=== PATIENT | male | born 1970 | race Caucasian/White ===

== ENCOUNTER 2017-10-10 22:48 | Inpatient (IN) | payer OTHER ==
[~2017-10-10] VITALS: Ht 177.8 cm; Wt 85.5 kg
[2017-10-10 23:07] VITALS: BP 139/97; PULSE 87; RESP 18; O2SAT 96
[2017-10-10] MEDS ORDERED: TETANUS/DIPHTHERIA TOXOID ADULT 0.5 ML VIAL IM ONE (23:30)
[2017-10-10] MEDS ORDERED: MORPHINE SULFATE 4 MG/ML INJ IV PUSH ONE (23:30)
[2017-10-10] MEDS ORDERED: SODIUM CHLOR 0.9% 1000 ML INJ 1,000 ML IV SCH (23:30)
[2017-10-10] MEDS ORDERED: ceFAZolin 2 GM PREMIX 100 ML IV ONE (23:30)
[2017-10-10] MEDS ORDERED: SODIUM CHLORIDE 0.9% FLUSH 10 ML FLUSH IVF PRN (23:30)
[2017-10-10] MEDS ORDERED: ONDANSETRON HCL 4 MG/2 ML VIAL IV PUSH ONE ×2 (23:30)
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
[2017-10-10 23:41] VITALS: RESP 20; O2SAT 98
[2017-10-11] VITALS (15 sets, daily range): BP systolic 131–160; BP diastolic 87–101; PULSE 82–109; RESP 12–20; TEMP 97.9–99.6; O2SAT 94–100
[2017-10-11] MEDS ORDERED: METOCLOPRAMIDE HCL 10 MG/2 ML VIAL IV PUSH ONE
[2017-10-11 00:23] LABS: BILIRUBIN, URINE NEG (NEG); BLOOD, URINE NEG (NEG); GLUCOSE,URINE NEG (NEG); KETONE, URINE NEG (NEG); NITRITE,URINE NEG (NEG); PH, URINE 6.5 (5.0-8.5); URINE COLOR LIGHT-YELLOW (YELLW/STRAW); URINE LEUKOCYTE ESTERASE NEG (NEG)
[2017-10-11 00:26] LABS: BASOPHIL % 0.2 % (0.0-2.0); EOSINOPHIL % 0.5 % (0.0-4.0); HEMATOCRIT 46.2 % (39.0-51.0); HEMOGLOBIN 15.8 GM/DL (13.0-17.0); LYMPH % 25.9 % (9.0-44.0); MEAN CELL VOLUME 95.7 FL (80.0-100.0); MEAN CORPUSCULAR HEMOGLOBIN 32.6 PG (27.0-34.0); MEAN CORPUSCULAR HGB CONC 34.1 % (32.0-36.0); MEAN PLATELET VOLUME 10.8 FL (7.0-11.0); MONO % 7.7 % (0.0-8.0); MONOCYTE # 0.6 TH/MM3 (0-0.9); NEUT % 65.7 % (16.0-70.0); PLATELET COUNT 217 TH/MM3 (150-450); RED BLOOD COUNT 4.83 MIL/MM3 (4.50-5.90); RED CELL DISTRIBUTION WIDTH 12.7 % (11.6-17.2); WHITE BLOOD COUNT 7.5 TH/MM3 (4.0-11.0)
[2017-10-11] MEDS ORDERED: LIDOCAINE HCL 1% PF 30 ML VIAL INFIL ONE (00:30)
[2017-10-11 00:31] LABS: PROTHROMBIN TIME - PATIENT 10.3 SEC (9.8-11.6)
[2017-10-11 00:36] LABS: BICARBONATE 29.2 MEQ/L (21.0-32.0); CALCIUM 9.1 MG/DL (8.5-10.1); CREATININE 1.13 MG/DL (0.60-1.30)
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
[2017-10-11] MEDS ORDERED: MAGNESIUM HYDROXIDE SUSP 30 ML CUP PO PRN (01:15)
[2017-10-11] MEDS ORDERED: BISACODYL 10 MG SUPP RECTAL PRN (01:15)
[2017-10-11] MEDS: SODIUM CHLOR 0.9% 1000 ML INJ 1,000 ML IV SCH ×2 (01:15→13:10)
[2017-10-11] MEDS ORDERED: NURSING INFORMATION XX SCH (01:15)
[2017-10-11] MEDS ORDERED: SENNOSIDES 8.6 MG TAB PO PRN (01:15)
[2017-10-11] MEDS ORDERED: LACTULOSE SYRUP 20 GM/30 ML CUP PO PRN (01:15)
[2017-10-11] MEDS ORDERED: MORPHINE SULFATE 4 MG/ML INJ IV PUSH ONE (01:15)
[2017-10-11] MEDS ORDERED: CHLORHEXIDINE GLUCONATE 2 % 1 PACK (2 CLOTHS) TOP PRN (01:15)
[2017-10-11] MEDS ORDERED: HYDROmorphone HCL PF 2 MG/ML VIAL IV PUSH PRN (01:30)
[2017-10-11] MEDS ORDERED: IOHEXOL 350 MG/ML 10 ML VIAL (for RAD DIAG) IVCONTRAST ONE (02:01)
[2017-10-11] MEDS: ACETAMINOPHEN 1000 MG/100 ML 100 ML IV SCH ×4 (02:17→20:00)
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
[2017-10-11] MEDS ORDERED: SODIUM CHLOR 0.9% 1000 ML INJ 1,000 ML IV ONE (02:45)
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
[2017-10-11] MEDS: CHLORHEXIDINE GLUCONATE 2 % 1 PACK (2 CLOTHS) TOP SCH (04:00)
[2017-10-11] MEDS: FAMOTIDINE 20 MG/2 ML VIAL IV PUSH SCH ×2 (06:00→18:44)
[2017-10-11] MEDS ORDERED: MIDAZOLAM HCL 5 MG/ML VIAL (1 ML) ONE (07:52)
[2017-10-11] MEDS ORDERED: MORPHINE SULFATE 4 MG/ML INJ IV ONE (08:00)
[2017-10-11] MEDS ORDERED: MIDAZOLAM HCL 5 MG/ML VIAL (1 ML) IV ONE (08:00)
[2017-10-11] MEDS ORDERED: LIDOCAINE 1%/EPINEPHrine 1:100,000 SOLN 20 ML VIAL OTHER ONE (08:15)
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
--- NOTE | 2017-10-11 08:58 | PD.OP ---
Operative Report Date of Surgery: October 11, 2017 Preoperative Diagnosis: Cervical C4-5 fracture subluxation with jumped facet on the right side and perched facet on left side Postoperative Diagnosis: Same Procedure: Closed reduction with manipulation of C4-5 cervical fracture; HALO placement Anesthesia: Local with conscious sedation Surgeon: Shimon Ferreira MD Field Supervisor [employer](s): [employer]idence Operation and Findings: Informed consent was obtained from the patient. Procedure undertaken at the bedside in the surgical intensive care unit with oxygen saturation and hemodynamic monitoring. Versed 2 mg and morphine 8 mg IV was administered and neck was maintained in a Jackson J collar during the placement of the halo. A bifrontal and occipital regions were then shaved and prepped with Betadine solution and infiltrated with 1% lidocaine with epinephrine solution avoiding the laceration sites. The halo ring was in place with 2 frontal and occipital pins tightened to 8 pounds of torque pressure. The ring was then placed under cervical traction initially 10 pounds and subsequently increased to 15 pounds with slight extension of the neck. Cervical spine x-rays will be obtained in a few hours to assess whether reduction C4-5 fracture subluxation is achieved with traction. Patient tolerated the procedure well without any complications or blood loss. Shimon Ferreira MD October 11, 2017 08:58
[2017-10-11] MEDS: DOCUSATE SODIUM 50 MG/SENNA 8.6 MG TAB PO SCH ×2 (09:00→21:00)
[2017-10-11] MEDS: METHOCARBAMOL 500 MG TAB PO SCH ×3 (11:04→21:27)
--- NOTE | 2017-10-11 12:53 | RADRPT ---
EXAM DATE: 10/11/2017 12:48 PM EDT AGE/SEX: 47 years / Male INDICATIONS: Follow up cervical spine subluxation CLINICAL DATA: This is the patient's subsequent encounter. Patient reports that signs and symptoms h ave been present for 1 day and indicates a pain score of Nonresponsive. MEDICAL/SURGICAL HISTORY: . C4-5 subluxation and fracture cervical traction Non-responsive. COMPAR[place]: [facility] [place]/O CONTRAST, 10/11/2017. . FINDINGS: A grade 1/2 anterolisthesis of C4 on C5 with perched facets persisting as on recent CT. CONCLUSION: Anterior subluxation of C4 on C5 with perched facets remain similar in appearance to recent CT examin ation. Electronically signed by: Mich Garcia MD 10/11/2017 12:51 PM EDT
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
[2017-10-11] MEDS: ENOXAPARIN SODIUM 30 MG/0.3 ML SYRINGE SQ SCH (18:44)
[2017-10-11] MEDS: HYDROmorphone HCL PF 2 MG/ML VIAL IV PUSH PRN (20:00)
[2017-10-11] MEDS: oxyCODONE/ACETAMINOPHEN 10 MG/325 MG TAB PO PRN (22:00)
[2017-10-12] VITALS (12 sets, daily range): BP systolic 149–156; BP diastolic 92–104; PULSE 83–110; RESP 14–16; TEMP 98.1–99.9; O2SAT 94–99
[2017-10-12] MEDS ORDERED: MAGNESIUM HYDROXIDE SUSP 30 ML CUP PO SCH (02:00)
[2017-10-12] MEDS: HYDROmorphone HCL PF 2 MG/ML VIAL IV PUSH PRN ×4 (02:57→17:29)
[2017-10-12] MEDS: oxyCODONE/ACETAMINOPHEN 10 MG/325 MG TAB PO PRN ×4 (02:57→20:44)
[2017-10-12] MEDS: ONDANSETRON ODT 4 MG TAB PO PRN ×2 (02:57→13:21)
[2017-10-12] MEDS: CHLORHEXIDINE GLUCONATE 2 % 1 PACK (2 CLOTHS) TOP SCH (04:00)
[2017-10-12 04:46] LABS: AUTOMATED NEUTROPHIL # 6.8 TH/MM3 (1.8-7.7); BASOPHIL % 0.2 % (0.0-2.0); EOSINOPHIL % 0.4 % (0.0-4.0); HEMATOCRIT 41.5 % (39.0-51.0); HEMOGLOBIN 14.7 GM/DL (13.0-17.0); LYMPH % 13.3 % (9.0-44.0); LYMPHOCYTE # 1.2 TH/MM3 (1.0-4.8); MEAN CELL VOLUME 94.7 FL (80.0-100.0); MEAN CORPUSCULAR HEMOGLOBIN 33.5 PG (27.0-34.0); MEAN CORPUSCULAR HGB CONC 35.4 % (32.0-36.0); MEAN PLATELET VOLUME 10.8 FL (7.0-11.0); MONO % 12.6 % (0.0-8.0); MONOCYTE # 1.2 TH/MM3 (0-0.9); NEUT % 73.5 % (16.0-70.0); PLATELET COUNT 188 TH/MM3 (150-450); RED BLOOD COUNT 4.38 MIL/MM3 (4.50-5.90); RED CELL DISTRIBUTION WIDTH 12.7 % (11.6-17.2); WHITE BLOOD COUNT 9.2 TH/MM3 (4.0-11.0)
[2017-10-12 05:07] LABS: BICARBONATE 29.2 MEQ/L (21.0-32.0); CALCIUM 8.5 MG/DL (8.5-10.1); CREATININE 0.73 MG/DL (0.60-1.30)
[2017-10-12] MEDS: ENOXAPARIN SODIUM 30 MG/0.3 ML SYRINGE SQ SCH (05:43)
[2017-10-12] MEDS: FAMOTIDINE 20 MG/2 ML VIAL IV PUSH SCH (05:43)
[2017-10-12] MEDS: METHOCARBAMOL 500 MG TAB PO SCH (05:43)
[2017-10-12] MEDS: SODIUM CHLOR 0.9% 1000 ML INJ 1,000 ML IV SCH (05:44)
--- NOTE | 2017-10-12 08:31 | RADRPT ---
EXAM DATE: 10/12/2017 8:21 AM EDT AGE/SEX: 47 years / Male INDICATIONS: Follow-up C4-C5 subluxation. CLINICAL DATA: This is the patient's subsequent encounter. Patient reports that signs and symptoms h ave been present for 3 days and indicates a pain score of 0/10. MEDICAL/SURGICAL HISTORY: . C4-5 subluxation and fracture cervical traction. None. COMPARISON: [facility] [place] CERVICAL LATERAL ONLY, 10/11/2017. . FINDINGS: Today's exam is compared to the prior study. There continues to be anterior subluxation of C4 over C5 by approximately 1 cm. This appears to be unchanged compared to the prior exam. This appears to be s econdary to perched facets. CONCLUSION: No significant change compared to the prior exam. There continues to be approximately 1 cm of anterio r subluxation of C4 over C5. Electronically signed by: Brian Martinez MD 10/12/2017 8:29 AM EDT
[2017-10-12] MEDS: FAMOTIDINE 20 MG TAB PO SCH ×2 (08:55→20:44)
[2017-10-12] MEDS: LACTULOSE SYRUP 20 GM/30 ML CUP PO SCH (08:55)
[2017-10-12] MEDS: MAGNESIUM HYDROXIDE SUSP 30 ML CUP PO SCH ×2 (08:56→21:00)
[2017-10-12] MEDS: DOCUSATE SODIUM 50 MG/SENNA 8.6 MG TAB PO SCH ×2 (08:56→21:00)
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
[2017-10-12] MEDS: DIAZEPAM 2 MG TAB PO SCH ×2 (13:12→20:44)
[2017-10-13] VITALS (12 sets, daily range): BP systolic 127–149; BP diastolic 81–102; PULSE 91–113; RESP 15–22; TEMP 98.4–99.1; O2SAT 19–98
[2017-10-13] MEDS: HYDROmorphone HCL PF 2 MG/ML VIAL IV PUSH PRN ×6 (00:09→23:16)
[2017-10-13] MEDS: CHLORHEXIDINE GLUCONATE 2 % 1 PACK (2 CLOTHS) TOP SCH ×2 (04:00→22:09)
[2017-10-13] MEDS: ENOXAPARIN SODIUM 30 MG/0.3 ML SYRINGE SQ SCH ×2 (05:05→17:09)
[2017-10-13] MEDS: DIAZEPAM 2 MG TAB PO SCH ×3 (05:05→22:09)
[2017-10-13] MEDS: oxyCODONE/ACETAMINOPHEN 10 MG/325 MG TAB PO PRN ×3 (07:53→22:11)
[2017-10-13] MEDS: FAMOTIDINE 20 MG TAB PO SCH ×2 (07:54→22:09)
[2017-10-13] MEDS: DOCUSATE SODIUM 50 MG/SENNA 8.6 MG TAB PO SCH ×2 (09:00→21:00)
[2017-10-13] MEDS: MAGNESIUM HYDROXIDE SUSP 30 ML CUP PO SCH ×2 (09:00→21:00)
[2017-10-13] MEDS: LACTULOSE SYRUP 20 GM/30 ML CUP PO SCH (09:00)
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
[2017-10-14] VITALS (15 sets, daily range): BP systolic 121–141; BP diastolic 77–98; PULSE 92–117; RESP 13–27; TEMP 98.4–100.6; O2SAT 92–100
[2017-10-14] MEDS: oxyCODONE/ACETAMINOPHEN 10 MG/325 MG TAB PO PRN ×2 (01:47→21:53)
[2017-10-14 03:32] LABS: AUTOMATED NEUTROPHIL # 5.8 TH/MM3 (1.8-7.7); BASOPHIL % 0.2 % (0.0-2.0); EOSINOPHIL # 0.1 TH/MM3 (0-0.4); EOSINOPHIL % 1.5 % (0.0-4.0); HEMATOCRIT 42.3 % (39.0-51.0); HEMOGLOBIN 14.9 GM/DL (13.0-17.0); LYMPH % 15.7 % (9.0-44.0); LYMPHOCYTE # 1.4 TH/MM3 (1.0-4.8); MEAN CELL VOLUME 93.5 FL (80.0-100.0); MEAN CORPUSCULAR HEMOGLOBIN 33.1 PG (27.0-34.0); MEAN CORPUSCULAR HGB CONC 35.4 % (32.0-36.0); MONO % 16.2 % (0.0-8.0); MONOCYTE # 1.4 TH/MM3 (0-0.9); NEUT % 66.4 % (16.0-70.0); PLATELET COUNT 206 TH/MM3 (150-450); RED BLOOD COUNT 4.52 MIL/MM3 (4.50-5.90); RED CELL DISTRIBUTION WIDTH 12.5 % (11.6-17.2); WHITE BLOOD COUNT 8.8 TH/MM3 (4.0-11.0)
[2017-10-14 03:58] LABS: ALBUMIN 3.5 GM/DL (3.4-5.0); ALT (GPT) 33 U/L (12-78); AST (GOT) 20 U/L (15-37); BICARBONATE 32.4 MEQ/L (21.0-32.0); BLOOD UREA NITROGEN 11 MG/DL (7-18); CHLORIDE 97 MEQ/L (98-107); CREATININE 0.75 MG/DL (0.60-1.30); GLOMERULAR FILTRATION RATE 113 ML/MIN (>89); GLUCOSE,RANDOM 103 MG/DL (74-106); SODIUM (NA) 137 MEQ/L (136-145)
[2017-10-14 04:00] LABS: ALKALINE PHOSPHATASE 66 U/L (45-117); TOTAL BILIRUBIN ADULT 0.6 MG/DL (0.2-1.0); TOTAL PROTEIN 7.6 GM/DL (6.4-8.2)
[2017-10-14] MEDS: DIAZEPAM 2 MG TAB PO SCH ×3 (06:38→21:53)
[2017-10-14] MEDS: ENOXAPARIN SODIUM 30 MG/0.3 ML SYRINGE SQ SCH (06:38)
[2017-10-14] MEDS: HYDROmorphone HCL PF 2 MG/ML VIAL IV PUSH PRN ×3 (06:39→19:49)
[2017-10-14] MEDS: FAMOTIDINE 20 MG TAB PO SCH ×2 (08:39→19:49)
[2017-10-14] MEDS: DOCUSATE SODIUM 50 MG/SENNA 8.6 MG TAB PO SCH ×2 (08:39→19:49)
[2017-10-14] MEDS: LACTULOSE SYRUP 20 GM/30 ML CUP PO SCH (08:39)
[2017-10-14] MEDS: MAGNESIUM HYDROXIDE SUSP 30 ML CUP PO SCH ×2 (08:39→19:49)
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
--- NOTE | 2017-10-14 11:39 | RADRPT ---
EXAM DATE: 10/14/2017 11:30 AM EDT AGE/SEX: 47 years / Male INDICATIONS: Evaluate fracture. CLINICAL DATA: This is the patient's subsequent encounter. Patient reports that signs and symptoms h ave been present for 3 days and indicates a pain score of 6/10. MEDICAL/SURGICAL HISTORY: . C4-5 subluxation and fracture cervical traction None. COMPARISON: [facility] [place], SPINE CERVICAL LATERAL ONLY, 10/12/2017. . FINDINGS: A single view of the spine was performed. There is anterolisthesis C4 on 5 of 5 mm. This spaces are maintained. Patient within a halo. Vertebral body height and disc space height is maintained. CONCLUSION: Anterolisthesis measures 5 mm at C4-5. Electronically signed by: Jeffry Randolph MD 10/14/2017 11:37 AM EDT
[2017-10-14] MEDS: NS + KCL 20 MEQ INJ 1,000 ML IV SCH ×2 (12:45→21:31)
[2017-10-14] MEDS: ONDANSETRON ODT 4 MG TAB PO PRN (21:53)
[2017-10-15] VITALS (14 sets, daily range): BP systolic 100–124; BP diastolic 60–93; PULSE 86–108; RESP 12–17; TEMP 97.8–99.3; O2SAT 93–100
[2017-10-15] MEDS: HYDROmorphone HCL PF 2 MG/ML VIAL IV PUSH PRN ×2 (01:47→07:51)
[2017-10-15] MEDS: CHLORHEXIDINE GLUCONATE 2 % 1 PACK (2 CLOTHS) TOP SCH (04:00)
[2017-10-15] MEDS: DIAZEPAM 2 MG TAB PO SCH (06:05)
--- NOTE | 2017-10-15 06:44 | RADRPT ---
EXAM DATE: 10/15/2017 6:41 AM EDT AGE/SEX: 47 years / Male INDICATIONS: Short of breath. CLINICAL DATA: This is the patient's initial encounter. Patient reports that signs and symptoms have been present for 1 day and indicates a pain score of Nonresponsive. MEDICAL/SURGICAL HISTORY: . C4-5 subluxation and fracture cervical traction. None. COMPARISON: No prior exams available for comparison. FINDINGS: Slight bibasilar atelectasis is seen. Focal consolidation is not seen. Heart and mediastinum are unre markable for technique. CONCLUSION: Slight bibasilar atelectasis. Electronically signed by: Jacky Post MD 10/15/2017 6:42 AM EDT
[2017-10-15] MEDS ORDERED: GELFOAM SIZE 100 ONE ×2 (06:58→13:11)
[2017-10-15] MEDS ORDERED: BUPIVACAINE/EPINEPHRINE 0.5% PF 10 ML VIAL ONE (06:58)
[2017-10-15] MEDS ORDERED: THROMBIN (TOPICAL) 5,000 UNIT VIAL ONE ×2 (06:58→13:11)
[2017-10-15] MEDS ORDERED: VANCOMYCIN HCL 1000 MG VIAL ONE ×3 (06:58→13:16)
[2017-10-15] MEDS: MAGNESIUM HYDROXIDE SUSP 30 ML CUP PO SCH ×2 (09:00→19:40)
[2017-10-15] MEDS: FAMOTIDINE 20 MG TAB PO SCH (09:00)
[2017-10-15] MEDS: DOCUSATE SODIUM 50 MG/SENNA 8.6 MG TAB PO SCH ×2 (09:00→19:40)
[2017-10-15] MEDS: LACTULOSE SYRUP 20 GM/30 ML CUP PO SCH (09:00)
[2017-10-15] MEDS ORDERED: PROPOFOL 500 MG/50 ML INJ 50 ML ONE ×2 (11:54→14:22)
[2017-10-15] MEDS ORDERED: KETAMINE HCL 50 MG/5 ML SYRINGE ONE (11:55)
[2017-10-15] MEDS ORDERED: PHENYLEPHRINE HCL 10 MG/ML VIAL IV ONE (12:00)
[2017-10-15] MEDS ORDERED: LACTATED RINGER'S 1000 ML INJ 1,000 ML IV ONE (12:00)
[2017-10-15] MEDS ORDERED: PROPOFOL 200 MG/20 ML AMP IV ONE (12:00)
[2017-10-15] MEDS ORDERED: DEXAMETHASONE SOD PHOS 4 MG/ML VIAL IV ONE (12:00)
[2017-10-15] MEDS ORDERED: PHENYLEPH/NS 1000 MCG/10 ML SYR IV ONE (12:00)
[2017-10-15] MEDS ORDERED: ROCURONIUM INJ 50 MG/5 ML SYRINGE IV PUSH ONE (12:00)
[2017-10-15] MEDS ORDERED: LIDOCAINE HCL 1% PF 5 ML SYRINGE OTHER ONE (12:00)
[2017-10-15] MEDS ORDERED: DEXAMETHASONE SOD PHOS 4 MG/ML VIAL ONE (13:16)
--- NOTE | 2017-10-15 13:34 | EKG ---
Date Performed: 10/15/2017 Time Performed: 05:41:54 PTAGE: 47 years EKG: Sinus rhythm . Leftward axis Borderline ECG NO PREVIOUS TRACING Nonspecific ST-T changes. DOCTOR: Benedict Bowling Interpretating Date/Time 10/18/2017 08:13:47
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
[2017-10-15] MEDS ORDERED: CYCLOBENZAPRINE HCL 10 MG TAB PO PRN (15:45)
[2017-10-15] MEDS ORDERED: MAGNESIUM HYDROXIDE SUSP 30 ML CUP PO PRN (15:45)
[2017-10-15] MEDS ORDERED: ACETAMINOPHEN 325 MG TAB PO PRN (15:45)
[2017-10-15] MEDS ORDERED: ALUMINUM/MAGNESIUM/SIMETH 30 ML CUP PO PRN (15:45)
[2017-10-15] MEDS ORDERED: LABETALOL HCL 100 MG/20 ML VIAL IV PUSH PRN (15:45)
[2017-10-15] MEDS ORDERED: MAGNESIUM SULFATE INJ 2 GM in SODIUM CHLORIDE 0.9% INJ 100 ML IV PRN (15:45)
[2017-10-15] MEDS ORDERED: CALCIUM GLUCONATE INJ 1 GM in SODIUM CHLORIDE 0.9% INJ 100 ML IV PRN (15:45)
[2017-10-15] MEDS ORDERED: ZOLPIDEM TARTRATE 5 MG TAB PO PRN (15:45)
[2017-10-15] MEDS ORDERED: PROMETHAZINE INJ 25 MG/ML VIAL IM PRN (15:45)
[2017-10-15] MEDS ORDERED: ACETAMINOPHEN/HYDROcodone 325 MG/10 MG TAB PO PRN ×2 (15:45)
[2017-10-15] MEDS ORDERED: RESP: ALBUTEROL 2.5 MG/3 ML NEB (PRN) NEB (15:45)
[2017-10-15] MEDS ORDERED: cloNIDine HCL 0.1 MG TAB PO PRN (15:45)
--- NOTE | 2017-10-15 15:59 | PD.OP ---
Operative Report Date of Surgery: October 15, 2017 Preoperative Diagnosis: Cervical C4-5 fracture subluxation and gross instability with right jumped facet and left perched facet with right C4-5 facet fracture Postoperative Diagnosis: Same Procedure: Stage 1 of 2 planned cervical spine stabilization surgery: Posterior cervical C4-5 fusion; C4-5 open reduction and internal fixation of fracture subluxation; C4-5 decompressive laminectomy; C4-5 lateral mass fixation ; microsurgical technique Anesthesia: General endotracheal by Gabby chowdhury Surgeon: Shimon Ferreira MD [employer]iance [employer] Director(s): Brisa Durán Operation and Findings: Patient was placed in halo traction with the attempted closed reduction of the C4-5 fracture subluxation with the some correction but not complete reduction of the jumped facet. Open reduction and internal fixation was indicated and this was discussed at length with the patient along with the risks and benefits and alternative nonsurgical and he requested that we proceed and gave informed consent. Following administration of general endotracheal anesthesia with the neck maintained in neutral position in a Halo, patient had a Wade catheter placed with sequential compression devices. He was a very difficult intubation as per the anesthesiologist. A gram of vancomycin and Decadron 10 mg was administered intravenously. He was then turned on a prone position on a Camron table and the head secured in a halo attached to the [place] headrest and all pressure points adequately padded. The posterior portion of the halo vest was then removed and posterior cervical region was then shaved and prepped with Betadine solution and ChloraPrep. Sterile draping undertaken along with Ioban and a midline incision extending from the C4 to the C5 levels was then made after infiltrating the skin was 0.5% Marcaine with epinephrine solution. Intraoperative fluoroscopy used for level confirmation. Retractors were used for exposure after the fascia incised and the muscular attachments to the spinous process and lamina along with the facets detached from C4-5 levels bilaterally. There was right C4-5 jumped facet with fracture noted but the left C4-5 perched facet had reduced. Further dissection was undertaken using microtechnique with microscope magnification. I drilled out the lamina at the junction of the facets from C4-5 levels bilaterally and an en bloc laminectomy undertaken for decompression the spinal canal. The ligamentum flavum were also resected with Kerrisons. The facets on both sides decorticated with a curette. With the use of a clip the C4-5 right jumped facet was reduced along with drilling of the superior portion of the C5 facet and with the lateral fluoroscopy realignment of the C4-5 subluxation was noted. Subsequently lateral mass fixation undertaken with the [employer] screws with entry point of the midportion of the facets at the C4 and C5 levels bilaterally. The screw trajectory was lateral and superiorly guided with fluoroscopy also. Screws were then connected with a roger and locked in place with caps. The construct appeared to be secure this point in AP and lateral fossae confirmed good placement and alignment. The decorticated facets were then packed from C4-5 levels with the local autograft morselized bone mixed with demineralized bone matrix for posterolateral fusion. The area was then copiously irrigated with vancomycin antibiotic solution and the laminectomy edges and hemostasis achieved with bone wax along with Gelfoam and thrombin. Retractors removed and the muscle and fascia using 2-0 Vicryl interrupted sutures and 3-0 Vicryl subcuticular stitch also placed in an interrupted fashion and final skin closure was with sherron. A sterile dressing was applied and posterior portion of the halo vest was then replaced and connected to the ring and secured in place. The Goodwin headrest attachment of the halo ring was then detached and he was then turned in supine position . There were no intraoperative complications and all sponge and needle count was correct at the end the procedure. Estimated blood loss about 100 cc. Patient was left intubated given the difficult intubation and the likelihood for anterior C4-5 cervical fusion staged approach. He was taken back to the surgical intensive care unit. Patient did undergo intraoperative neurologic monitoring which remained stable throughout surgery. Shimon Ferreira MD October 15, 2017 15:59
[2017-10-15] MEDS: NS + KCL 20 MEQ INJ 1,000 ML IV SCH (16:00)
[2017-10-15] MEDS ORDERED: MIDAZOLAM HCL 2 MG/2 ML VIAL ONE (16:00)
[2017-10-15] MEDS: PROPOFOL 1000 MG/100 ML INJ 100 ML IV PRN (16:26)
[2017-10-15] MEDS: fentaNYL DRIP 250 ML IV PRN (16:26)
--- NOTE | 2017-10-15 16:28 | RADRPT ---
EXAM DATE: 10/15/2017 4:18 PM EDT AGE/SEX: 47 years / Male INDICATIONS: C4-5 Posterior fusion. CLINICAL DATA: This is the patient's initial encounter. Patient reports that signs and symptoms have been present for 1 day and indicates a pain score of Nonresponsive. MEDICAL/SURGICAL HISTORY: Non-responsive. Non-responsive. COMPARISON: No prior [place] exams available for comparison. FINDINGS: 3 spot fluoroscopic images were obtained in the operating room during a cervical spine procedure and demonstrate posterior screws bilaterally at the C4-C5 level with vertical stabilization hardware. Doyle inectomy has also been performed at these levels. No acute finding is identified. CONCLUSION: Images document posterior spinal hardware at C4-C5, as above. Electronically signed by: Gómez Ni MD 10/15/2017 4:26 PM EDT
[2017-10-15 16:29] LABS: HEMATOCRIT 40.1 % (39.0-51.0); HEMOGLOBIN 13.9 GM/DL (13.0-17.0); MEAN CELL VOLUME 94.2 FL (80.0-100.0); MEAN CORPUSCULAR HEMOGLOBIN 32.7 PG (27.0-34.0); MEAN CORPUSCULAR HGB CONC 34.8 % (32.0-36.0); MEAN PLATELET VOLUME 9.9 FL (7.0-11.0); PLATELET COUNT 229 TH/MM3 (150-450); RED BLOOD COUNT 4.26 MIL/MM3 (4.50-5.90); RED CELL DISTRIBUTION WIDTH 12.4 % (11.6-17.2); WHITE BLOOD COUNT 9.6 TH/MM3 (4.0-11.0)
[2017-10-15] MEDS ORDERED: fentaNYL 2,500 MCG/NS 250 ML IV PRN (16:30)
--- NOTE | 2017-10-15 16:47 | RADRPT ---
EXAM DATE: 10/15/2017 4:38 PM EDT AGE/SEX: 47 years / Male INDICATIONS: Post intubation. CLINICAL DATA: This is the patient's subsequent encounter. Patient reports that signs and symptoms h ave been present for 1 week and indicates a pain score of Nonresponsive. MEDICAL/SURGICAL HISTORY: . C4-5 subluxation and fracture cervical traction. . Halo placement. COMPARISON: [facility], CHEST SINGLE AP, 10/15/2017. . FINDINGS: Portable AP view of the chest demonstrates a normal size cardiac silhouette. Endotracheal tube is pre sent with distal tip at the aortic knob level measuring 4.2 cm from the dorene. Lungs are underinflat ed with mild atelectasis at the lung bases. No pleural effusion or pneumothorax is identified. Bones demonstrate no acute finding. Halo device overlies the patient. CONCLUSION: Endotracheal tube is in appropriate location with tip measuring 4.2 cm from the dorene. Lungs are und erinflated. Electronically signed by: Gómez Ni MD 10/15/2017 4:46 PM EDT
[2017-10-15 16:56] LABS: BICARBONATE 27.3 MEQ/L (21.0-32.0); CALCIUM 8.7 MG/DL (8.5-10.1); CREATININE 0.82 MG/DL (0.60-1.30)
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
[2017-10-15] MEDS: FAMOTIDINE 20 MG/2 ML VIAL IV PUSH SCH (17:39)
[2017-10-15] MEDS: SODIUM CHLORIDE 0.9% FLUSH 10 ML FLUSH IV FLUSH SCH (19:41)
[2017-10-15] MEDS: DEXAMETHASONE SOD PHOS 4 MG/ML VIAL IV PUSH SCH (19:44)
[2017-10-16] VITALS (18 sets, daily range): BP systolic 93–122; BP diastolic 57–75; PULSE 80–101; RESP 12; TEMP 97.3–99; O2SAT 94–100
[2017-10-16] MEDS: DEXAMETHASONE SOD PHOS 4 MG/ML VIAL IV PUSH SCH ×2 (01:42→07:56)
[2017-10-16] MEDS: NS + KCL 20 MEQ INJ 1,000 ML IV SCH (01:45)
[2017-10-16] MEDS: PROPOFOL 1000 MG/100 ML INJ 100 ML IV PRN (03:57)
[2017-10-16] MEDS: FAMOTIDINE 20 MG/2 ML VIAL IV PUSH SCH ×2 (03:57→17:00)
[2017-10-16] MEDS: CHLORHEXIDINE GLUCONATE 2 % 1 PACK (2 CLOTHS) TOP SCH (04:00)
[2017-10-16 04:04] LABS: AUTOMATED NEUTROPHIL # 9.5 TH/MM3 (1.8-7.7); BASOPHIL % 0.2 % (0.0-2.0); HEMATOCRIT 36.3 % (39.0-51.0); HEMOGLOBIN 12.9 GM/DL (13.0-17.0); LYMPH % 5.7 % (9.0-44.0); LYMPHOCYTE # 0.6 TH/MM3 (1.0-4.8); MEAN CELL VOLUME 93.2 FL (80.0-100.0); MEAN CORPUSCULAR HEMOGLOBIN 33.2 PG (27.0-34.0); MEAN CORPUSCULAR HGB CONC 35.6 % (32.0-36.0); MEAN PLATELET VOLUME 10.7 FL (7.0-11.0); MONO % 6.9 % (0.0-8.0); MONOCYTE # 0.8 TH/MM3 (0-0.9); NEUT % 87.2 % (16.0-70.0); PLATELET COUNT 200 TH/MM3 (150-450); RED CELL DISTRIBUTION WIDTH 12.4 % (11.6-17.2); WHITE BLOOD COUNT 10.9 TH/MM3 (4.0-11.0)
[2017-10-16 04:15] LABS: BICARBONATE 27.8 MEQ/L (21.0-32.0); CALCIUM 8.2 MG/DL (8.5-10.1); CREATININE 0.68 MG/DL (0.60-1.30)
[2017-10-16] MEDS: fentaNYL DRIP 250 ML IV PRN ×3 (07:15→23:14)
[2017-10-16] MEDS: SODIUM CHLORIDE 0.9% FLUSH 10 ML FLUSH IV FLUSH SCH ×2 (07:56→19:31)
[2017-10-16] MEDS: MAGNESIUM HYDROXIDE SUSP 30 ML CUP PO SCH ×2 (07:57→19:30)
[2017-10-16] MEDS: DOCUSATE SODIUM 50 MG/SENNA 8.6 MG TAB PO SCH ×2 (07:57→19:31)
[2017-10-16] MEDS: LACTULOSE SYRUP 20 GM/30 ML CUP PO SCH (07:57)
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
[2017-10-16] MEDS ORDERED: MIDAZOLAM 100 MG/100 ML INJ 100 ML IV PRN (09:45)
[2017-10-16] MEDS: MIDAZOLAM 50 MG/50 ML INJ 50 ML IV PRN ×3 (10:43→20:27)
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
--- NOTE | 2017-10-16 13:57 | EKG ---
Date Performed: 10/16/2017 Time Performed: 06:21:10 PTAGE: 47 years EKG: ELECTRONIC VENTRICULAR PACEMAKER ABNORMAL RHYTHM ECG PREVIOUS TRACING : 10/15/2017 05.41 DOCTOR: Earl Santos Interpretating Date/Time 10/16/2017 13:54:43
--- NOTE | 2017-10-16 14:36 | RADRPT ---
EXAM DATE: 10/16/2017 2:09 PM EDT AGE/SEX: 47 years / Male INDICATIONS: History of anterior listhesis of C4 on C5 with bilateral perched facets and small fractu re off the superior facet of C4 on the right. C4-C5 Subluxation post op cervical fusion CLINICAL DATA: This is the patient's subsequent encounter. Patient reports that signs and symptoms h ave been present for 4 - 6 days and indicates a pain score of 5/10. MEDICAL/SURGICAL HISTORY: . Fusion, cervical. Hernia repair, Halo [place] [facility] [place] [facility] 10/15/2017. . TECHNIQUE: Multiplanar, multisequence MRI examination of the cervical spine was performed without co ntrast. FINDINGS: Vertebrae: Normal vertebral body height. Status post removal of portions of the C4-C5 spinous proces ses. Alignment: Normal. Discs: Status post fusion at the C4-5 level with bilateral pedicle screws and posterior fixation roger s. Postoperative changes are noted involving the posterior soft tissues. Cord: Normal configuration and signal. Post Fossa: The cerebellar tonsils are normal in position. C2-C3: The thecal sac has a normal configuration. There is no evidence of disc herniation or spinal canal stenosis. The neural foramina are patent bilaterally. C3-C4: The thecal sac has a normal configuration. There is no evidence of disc herniation or spinal canal stenosis. The neural foramina are patent bilaterally. Postoperative changes noted in the post erior soft tissues with partial removal of the the C3 spinous process. C4-C5: The thecal sac has a normal configuration. There is no evidence of disc herniation or spinal canal stenosis. The neural foramina are patent bilaterally. Postoperative changes are noted involvi ng the posterior soft tissues with partial removal of the C4-C5 spinous processes. C5-C6: There is a mild disc bulge greatest in the right parasagittal region with mild mass effect on the anterior thecal sac and no mass effect cord. The neural foramina are patent bilaterally. C6-C7: The thecal sac has a normal configuration. There is no evidence of disc herniation or spinal canal stenosis. The neural foramina are patent bilaterally. C7-T1: No epidural impressions seen. CONCLUSION: 1. Interval postsurgical changes status post fusion at the C4-5 level and partial removal of the spi nous processes at 3 through C5 levels. 2. The alignment is now anatomic. 3. Disc bulge at C5-6 greatest in right parasagittal region. Electronically signed by: Jose Rafael Rdz MD 10/16/2017 2:35 PM EDT
[2017-10-16] MEDS: BISACODYL 10 MG SUPP RECTAL SCH (17:00)
[2017-10-16] MEDS: SODIUM CHLOR 0.9% 1000 ML INJ 1,000 ML IV SCH (20:23)
[2017-10-16] MEDS: ARTIFICIAL TEARS OPTH SOLN 15 ML BTL EACH EYE SCH (20:23)
[2017-10-17] VITALS (19 sets, daily range): BP systolic 102–116; BP diastolic 59–71; PULSE 60–118; RESP 12; TEMP 98.3–100.2; O2SAT 96–100
[2017-10-17] MEDS: SODIUM CHLOR 0.9% 1000 ML INJ 1,000 ML IV SCH ×2 (00:35→14:27)
[2017-10-17] MEDS: CHLORHEXIDINE GLUCONATE 2 % 1 PACK (2 CLOTHS) TOP SCH (04:00)
[2017-10-17] MEDS: ARTIFICIAL TEARS OPTH SOLN 15 ML BTL EACH EYE SCH ×3 (04:42→22:00)
[2017-10-17] MEDS: FAMOTIDINE 20 MG/2 ML VIAL IV PUSH SCH ×2 (04:42→16:56)
[2017-10-17] MEDS: MIDAZOLAM 50 MG/50 ML INJ 50 ML IV PRN ×3 (04:43→16:56)
[2017-10-17 07:22] LABS: BASOPHIL % 0.2 % (0.0-2.0); EOSINOPHIL # 0.1 TH/MM3 (0-0.4); EOSINOPHIL % 0.6 % (0.0-4.0); HEMATOCRIT 35.1 % (39.0-51.0); HEMOGLOBIN 12.1 GM/DL (13.0-17.0); LYMPHOCYTE # 1.6 TH/MM3 (1.0-4.8); MEAN CELL VOLUME 94.2 FL (80.0-100.0); MEAN CORPUSCULAR HEMOGLOBIN 32.5 PG (27.0-34.0); MEAN CORPUSCULAR HGB CONC 34.5 % (32.0-36.0); MEAN PLATELET VOLUME 10.8 FL (7.0-11.0); MONO % 12.9 % (0.0-8.0); MONOCYTE # 1.1 TH/MM3 (0-0.9); NEUT % 68.3 % (16.0-70.0); PLATELET COUNT 202 TH/MM3 (150-450); RED BLOOD COUNT 3.73 MIL/MM3 (4.50-5.90); RED CELL DISTRIBUTION WIDTH 12.5 % (11.6-17.2); WHITE BLOOD COUNT 8.8 TH/MM3 (4.0-11.0)
[2017-10-17 07:34] LABS: BICARBONATE 24.6 MEQ/L (21.0-32.0); CALCIUM 8.8 MG/DL (8.5-10.1); CREATININE 0.63 MG/DL (0.60-1.30)
[2017-10-17] MEDS: LACTULOSE SYRUP 20 GM/30 ML CUP PO SCH ×2 (08:40→21:00)
[2017-10-17] MEDS: MAGNESIUM HYDROXIDE SUSP 30 ML CUP PO SCH ×2 (08:41→21:00)
[2017-10-17] MEDS: DOCUSATE SODIUM 50 MG/SENNA 8.6 MG TAB PO SCH ×2 (08:41→21:00)
[2017-10-17] MEDS: SODIUM CHLORIDE 0.9% FLUSH 10 ML FLUSH IV FLUSH SCH ×2 (09:00→21:00)
[2017-10-17] MEDS: BISACODYL 10 MG SUPP RECTAL SCH (09:00)
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
[2017-10-17] MEDS ORDERED: POLYETHYLENE GLYCOL 17 GM PKG PO ONE (10:45)
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
[2017-10-17] MEDS ORDERED: POTASSIUM CHLORIDE 20 MEQ PWD PACKET PO ONE (11:00)
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
[2017-10-17] MEDS: fentaNYL DRIP 250 ML IV PRN ×2 (13:12→23:54)
[2017-10-17] MEDS ORDERED: LACTATED RINGER'S 1000 ML INJ 1,000 ML IV ONE (14:00)
[2017-10-17] MEDS ORDERED: RASS Change Order XX ONE (14:15)
[2017-10-18] VITALS (17 sets, daily range): BP systolic 108–137; BP diastolic 53–79; PULSE 76–113; RESP 12–22; TEMP 98–100.9; O2SAT 94–100
[2017-10-18] MEDS: MIDAZOLAM 50 MG/50 ML INJ 50 ML IV PRN ×3 (02:20→17:40)
[2017-10-18] MEDS: CHLORHEXIDINE GLUCONATE 2 % 1 PACK (2 CLOTHS) TOP SCH (04:00)
[2017-10-18] MEDS: FAMOTIDINE 20 MG/2 ML VIAL IV PUSH SCH ×2 (05:08→17:27)
[2017-10-18] MEDS: SODIUM CHLORIDE 0.9% FLUSH 10 ML FLUSH IV FLUSH PRN (05:09)
[2017-10-18] MEDS: SODIUM CHLOR 0.9% 1000 ML INJ 1,000 ML IV SCH (05:09)
[2017-10-18] MEDS: ARTIFICIAL TEARS OPTH SOLN 15 ML BTL EACH EYE SCH ×3 (05:09→21:28)
[2017-10-18 05:56] LABS: AUTOMATED NEUTROPHIL # 7.1 TH/MM3 (1.8-7.7); BASOPHIL % 0.2 % (0.0-2.0); EOSINOPHIL % 0.4 % (0.0-4.0); HEMATOCRIT 38.8 % (39.0-51.0); HEMOGLOBIN 13.6 GM/DL (13.0-17.0); LYMPH % 10.6 % (9.0-44.0); MEAN CELL VOLUME 94.4 FL (80.0-100.0); MEAN PLATELET VOLUME 10.5 FL (7.0-11.0); MONO % 15.7 % (0.0-8.0); MONOCYTE # 1.5 TH/MM3 (0-0.9); NEUT % 73.1 % (16.0-70.0); PLATELET COUNT 233 TH/MM3 (150-450); RED BLOOD COUNT 4.11 MIL/MM3 (4.50-5.90); RED CELL DISTRIBUTION WIDTH 12.5 % (11.6-17.2); WHITE BLOOD COUNT 9.6 TH/MM3 (4.0-11.0)
[2017-10-18 06:24] LABS: BICARBONATE 22.7 MEQ/L (21.0-32.0); CALCIUM 8.6 MG/DL (8.5-10.1); CREATININE 0.64 MG/DL (0.60-1.30)
[2017-10-18] MEDS ORDERED: THROMBIN (TOPICAL) 5,000 UNIT VIAL ONE (06:46)
[2017-10-18] MEDS ORDERED: VANCOMYCIN HCL 1000 MG VIAL ONE ×2 (06:46→08:53)
[2017-10-18] MEDS ORDERED: GELFOAM SIZE 100 ONE (06:47)
[2017-10-18] MEDS ORDERED: BUPIVACAINE/EPINEPHRINE 0.5% PF 10 ML VIAL ONE (06:47)
[2017-10-18] MEDS ORDERED: ACETAMINOPHEN 1000 MG/100 ML 0 ML IV ONE (07:34)
[2017-10-18] MEDS ORDERED: PROPOFOL 500 MG/50 ML INJ 150 ML ONE (07:35)
[2017-10-18] MEDS: MAGNESIUM HYDROXIDE SUSP 30 ML CUP PO SCH ×2 (07:46→20:49)
[2017-10-18] MEDS: LACTULOSE SYRUP 20 GM/30 ML CUP PO SCH ×2 (07:46→20:49)
[2017-10-18] MEDS: SODIUM CHLORIDE 0.9% FLUSH 10 ML FLUSH IV FLUSH SCH ×2 (07:46→20:49)
[2017-10-18] MEDS: DOCUSATE SODIUM 50 MG/SENNA 8.6 MG TAB PO SCH ×2 (07:47→20:50)
[2017-10-18] MEDS: BISACODYL 10 MG SUPP RECTAL SCH (07:47)
[2017-10-18] MEDS: POLYETHYLENE GLYCOL 17 GM PKG PO SCH (07:47)
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
[2017-10-18] MEDS ORDERED: SODIUM CHLOR 0.9% 250 ML INJ 250 ML ONE (08:53)
[2017-10-18] MEDS ORDERED: DEXAMETHASONE SOD PHOS 4 MG/ML VIAL ONE (09:24)
--- NOTE | 2017-10-18 10:59 | PD.OP ---
Operative Report Date of Surgery: Oct 18, 2017 Preoperative Diagnosis: Cervical C4-5 fracture subluxation with the jumped facets along with facet fracture and ligamentous disruption with gross instability; status post posterior stabilization with correction of subluxation Postoperative Diagnosis: Same Procedure: Stage 2 of 2 planned cervical spine stabilization surgery: Anterior cervical C4-5 microdiscectomy with interbody fusion; anterior C4-5 cervical plate placement; C4-5 interbody cage placement; microsurgical technique Anesthesia: General endotracheal by Gabby chowdhury Surgeon: Shimon Ferreira MD Quote Clerk(s): Brisa Durán Operation and Findings: Following administration of general endotracheal anesthesia, the patient received a gram of vancomycin and Decadron 10 mg intravenously. Sequential compression devices were placed in supine position on a Camron table and all pressure points adequately padded. The head secured in a donut and anterior portion of the halo vest and rings were removed and anterior cervical region then shaved and prepped with Chloraprep and sterilely draped with Ioban along with the usual sterile draping. A transverse skin incision on the left side of the neck was then made after infiltrating the skin with 0.5% Marcaine with epinephrine solution extending down through the platysma. At the anterior border of the sternocleidomastoid further dissection was undertaken developing a plane between the carotid sheath laterally and the trachea esophagus medially. The prevertebral fascia was exposed and dissected out. The medial attachments of the longus colli muscles were detached and a self-retaining retractor used for exposure. The C4-5 disc space was localized with a marking the disc space and using lateral fluoroscopy. There was complete disruption of the anterior longitudinal ligament along with annulus at this level. [place] distraction screws 14 mm length were placed one in the C4 and one in the C5 body interbody distraction and exposure. The annulus incised with a 15 blade and further dissection undertaken using microtechnique with microscope magnification. Diskectomy was undertaken with pituitaries and the endplates were also decorticated with curettes and drill bit. And more posteriorly complete disruption of the posterior longitudinal ligament was also noted. The foramen was decompressed bilaterally using a Kerrison's and palpation with a nerve hook, the exiting nerve roots were felt to be free. The area was then copiously irrigated. I then placed a Peek cage packed with local autograft bone at the C4-5 interspace under fluoroscopy guidance. [place] distraction pins were removed and the holes plugged with Gelfoam for hemostasis. In order to facilitate the fusion and provide stabilization, a Precision spine cervical plate was then placed with two 14 mm variable angle screws in the C4 body and two 14 mm fixed angle screws in the C5 body. The plate screw locking mechanism was then engaged. AP and lateral fluoroscopy confirmed good placement of the construct and the retractor was then removed. Muscular bleeding points were cauterized with bipolar cautery and Gelfoam was then also used for hemostasis which was removed. The platysma was then approximated using 3-0 Vicryl interrupted stitches and 3-0 Vicryl subcuticular stitch also placed in an interrupted fashion, and final skin closure was with Mastisol and Steri-Strips. Sterile dressing was then applied. The neck was then immobilized in the halo with the anterior portion of the breast replaced and connected to the ring. There are no intraoperative complications and all sponge and needle counts were correct at the end of procedure. Estimated blood loss was about 50 cc. The patient did undergo intraoperative neurologic monitoring which remained stable throughout the surgery. Shimon Ferreira MD Oct 18, 2017 10:59
--- NOTE | 2017-10-18 11:14 | RADRPT ---
EXAM DATE: 10/18/2017 11:09 AM EDT AGE/SEX: 47 years / Male INDICATIONS: Post-op C4-C5 anterior cervical fusion. CLINICAL DATA: This is the patient's subsequent encounter. Patient reports that signs and symptoms h ave been present for 1 week and indicates a pain score of Nonresponsive. MEDICAL/SURGICAL HISTORY: Non-responsive. Fusion, cervical. COMPARISON: [facility] [place], SPINE [facility]ERVICAL [facility] 10/15/2017. . FINDINGS: Status post anterior and posterior fusion at C4-C5. Alignment is anatomic. CONCLUSION: Anatomic alignment. Electronically signed by: Abdifatah Noel MD 10/18/2017 11:12 AM EDT
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
[2017-10-18] MEDS ORDERED: PROPOFOL 200 MG/20 ML AMP IV ONE (12:00)
[2017-10-18] MEDS ORDERED: LACTATED RINGER'S 1000 ML INJ 1,000 ML IV ONE (12:00)
[2017-10-18] MEDS ORDERED: PHENYLEPH/NS 1000 MCG/10 ML SYR IV ONE (12:00)
[2017-10-18] MEDS ORDERED: NORMOSOL R INJ 2,000 ML IV ONE (12:00)
[2017-10-18] MEDS ORDERED: DEXAMETHASONE SOD PHOS 4 MG/ML VIAL IV ONE (12:00)
[2017-10-18] MEDS: DEXAMETHASONE SOD PHOS 4 MG/ML VIAL IV PUSH SCH ×3 (12:11→23:59)
[2017-10-18] MEDS: POTASSIUM CHLOR 10 MEQ PREMIX 100 ML IV SCH ×3 (12:12→15:02)
[2017-10-18] MEDS: fentaNYL DRIP 250 ML IV PRN (14:59)
--- NOTE | 2017-10-18 16:18 | RADRPT ---
EXAM DATE: 10/18/2017 2:56 PM EDT AGE/SEX: 47 years / Male INDICATIONS: Confirm NG Tube Placement CLINICAL DATA: This is the patient's initial encounter. Patient reports that signs and symptoms have been present for 1 day and indicates a pain score of Nonresponsive. MEDICAL/SURGICAL HISTORY: None. None. COMPARISON: No prior [facility] exams available for comparison. FINDINGS: Feeding tube apparently in the right lower lobe bronchus. Bowel gas pattern is unremarkable There is no free air CONCLUSION: Feeding tube right lower lobe bronchus Findings have been communicated to the nurse caring for the patient at 1430 on today's date. Electronically signed by: Abdifatah Noel MD 10/18/2017 4:17 PM EDT
[2017-10-19] VITALS (20 sets, daily range): BP systolic 96–141; BP diastolic 59–91; PULSE 61–108; RESP 11–17; TEMP 97.7–98.7; O2SAT 95–100
[2017-10-19] MEDS: CHLORHEXIDINE GLUCONATE 2 % 1 PACK (2 CLOTHS) TOP SCH (04:00)
[2017-10-19 04:51] LABS: AUTOMATED NEUTROPHIL # 8.9 TH/MM3 (1.8-7.7); BASOPHIL % 0.1 % (0.0-2.0); HEMATOCRIT 35.9 % (39.0-51.0); HEMOGLOBIN 12.8 GM/DL (13.0-17.0); LYMPH % 6.1 % (9.0-44.0); LYMPHOCYTE # 0.6 TH/MM3 (1.0-4.8); MEAN CELL VOLUME 92.3 FL (80.0-100.0); MEAN CORPUSCULAR HEMOGLOBIN 32.9 PG (27.0-34.0); MEAN CORPUSCULAR HGB CONC 35.6 % (32.0-36.0); MEAN PLATELET VOLUME 10.5 FL (7.0-11.0); MONO % 8.4 % (0.0-8.0); MONOCYTE # 0.9 TH/MM3 (0-0.9); NEUT % 85.4 % (16.0-70.0); PLATELET COUNT 255 TH/MM3 (150-450); RED BLOOD COUNT 3.89 MIL/MM3 (4.50-5.90); RED CELL DISTRIBUTION WIDTH 12.4 % (11.6-17.2); WHITE BLOOD COUNT 10.4 TH/MM3 (4.0-11.0)
[2017-10-19] MEDS: FAMOTIDINE 20 MG/2 ML VIAL IV PUSH SCH ×2 (05:00→16:39)
[2017-10-19 05:32] LABS: BICARBONATE 23.7 MEQ/L (21.0-32.0); CALCIUM 8.5 MG/DL (8.5-10.1); CREATININE 0.6 MG/DL (0.60-1.30); MAGNESIUM 2.6 MG/DL (1.5-2.5); PHOSPHORUS 2.6 MG/DL (2.5-4.9)
[2017-10-19] MEDS: ARTIFICIAL TEARS OPTH SOLN 15 ML BTL EACH EYE SCH ×3 (06:00→21:47)
[2017-10-19] MEDS: MIDAZOLAM 50 MG/50 ML INJ 50 ML IV PRN ×3 (06:30→22:34)
[2017-10-19] MEDS: DEXAMETHASONE SOD PHOS 4 MG/ML VIAL IV PUSH SCH (06:30)
[2017-10-19] MEDS: SODIUM CHLORIDE 0.9% FLUSH 10 ML FLUSH IV FLUSH SCH ×2 (09:00→21:00)
[2017-10-19] MEDS: MAGNESIUM HYDROXIDE SUSP 30 ML CUP PO SCH ×2 (09:00→20:23)
[2017-10-19] MEDS: LACTULOSE SYRUP 20 GM/30 ML CUP PO SCH ×2 (09:00→20:23)
[2017-10-19] MEDS: BISACODYL 10 MG SUPP RECTAL SCH ×2 (09:00→09:49)
[2017-10-19] MEDS: POLYETHYLENE GLYCOL 17 GM PKG PO SCH (09:00)
[2017-10-19] MEDS: DOCUSATE SODIUM 50 MG/SENNA 8.6 MG TAB PO SCH ×2 (09:00→20:23)
[2017-10-19] MEDS: fentaNYL DRIP 250 ML IV PRN ×2 (09:04→16:39)
--- NOTE | 2017-10-19 10:25 | HHI.NSPN ---
History Interval History Patient has remained stable and is doing well Exam Results Vital Signs Date Time Temp Pulse Resp B/P (MAP) Pulse Ox O2 Delivery O2 Flow Rate FiO2 10/19/17 08:04 99 40 10/19/17 07:00 Mechanical Ventilator 10/19/17 06:00 104 10/19/17 04:00 97.8 17 122/79 (93) 10/15/17 07:31 2.00 Intake and Output 10/19/17 10/19/17 10/20/17 08:00 16:00 00:00 Intake Total 100 ml Output Total 1800 ml Balance -1700 ml Physical Examination Patient alert and awake. Follows commands. Moves all extremities to command Remains in a halo vest Lab, Micro, Other Results Laboratory Tests Test 10/18/17 10:50 10/19/17 04:30 Arterial Blood pH 7.37 Arterial Blood Partial Pressure O2 188 mmHg Red Blood Count 3.89 MIL/MM3 Hemoglobin 12.8 GM/DL Hematocrit 35.9 % Neutrophils (%) (Auto) 85.4 % Lymphocytes (%) (Auto) 6.1 % Monocytes (%) (Auto) 8.4 % Neutrophils # (Auto) 8.9 TH/MM3 Lymphocytes # (Auto) 0.6 TH/MM3 Random Glucose 144 MG/DL Magnesium Level 2.6 MG/DL Medical Decision Making Impression and Plan Patient doing well Continue support Mikhail Freeman MD Oct 19, 2017 10:25
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
[2017-10-19] MEDS: ENOXAPARIN SODIUM 30 MG/0.3 ML SYRINGE SQ SCH (16:39)
[2017-10-19] MEDS: SODIUM CHLOR 0.9% 1000 ML INJ 1,000 ML IV SCH ×2 (16:40)
--- NOTE | 2017-10-19 20:00 | RADRPT ---
EXAM DATE: 10/19/2017 7:55 PM EDT AGE/SEX: 47 years / Male INDICATIONS: Bilateral leg swelling. CLINICAL DATA: This is the patient's initial encounter. Patient reports that signs and symptoms have been present for 1 day and indicates a pain score of Nonresponsive. MEDICAL/SURGICAL HISTORY: . Cervical fracture. . Cervical spine surgery. COMPARISON: No prior [facility] exams available for comparison. No external comparison. TECHNIQUE: Venous ultrasound of both lower extremities was performed from the inguinal ligament to t he proximal calf. Real-time, color Doppler and spectral tracing, compression and augmentation techni ques were used. FINDINGS: Right Leg: There is normal compressibility of the deep venous system from the inguinal region to the proximal calf. No echogenic clot is seen in the lumen of the common femoral, femoral, popliteal, an d posterior tibial veins. There is a normal response of the venous system to proximal and distal aug mentation and respiration. Left Leg: There is normal compressibility of the deep venous system from the inguinal region to the proximal calf. No echogenic clot is seen in the lumen of the common femoral, femoral, popliteal, and posterior tibial veins. There is a normal response of the venous system to proximal and distal augm entation and respiration. CONCLUSION: 1. No evidence of deep venous thrombosis within the lower extremities. Electronically signed by: Shreyas Soni MD 10/19/2017 7:58 PM EDT
[2017-10-20] VITALS (15 sets, daily range): BP systolic 110–132; BP diastolic 59–85; PULSE 54–80; RESP 10–18; TEMP 97.6–98.8; O2SAT 94–100
[2017-10-20] MEDS: MIDAZOLAM 50 MG/50 ML INJ 50 ML IV PRN ×3 (03:14→17:45)
[2017-10-20] MEDS: CHLORHEXIDINE GLUCONATE 2 % 1 PACK (2 CLOTHS) TOP SCH (04:00)
[2017-10-20 04:43] LABS: HEMATOCRIT 30.7 % (39.0-51.0); MEAN CELL VOLUME 93.9 FL (80.0-100.0); MEAN CORPUSCULAR HEMOGLOBIN 33.5 PG (27.0-34.0); MEAN CORPUSCULAR HGB CONC 35.6 % (32.0-36.0); MEAN PLATELET VOLUME 10.8 FL (7.0-11.0); PLATELET COUNT 248 TH/MM3 (150-450); RED BLOOD COUNT 3.27 MIL/MM3 (4.50-5.90); RED CELL DISTRIBUTION WIDTH 12.4 % (11.6-17.2); WHITE BLOOD COUNT 8.1 TH/MM3 (4.0-11.0)
[2017-10-20 05:05] LABS: BICARBONATE 21.8 MEQ/L (21.0-32.0); CALCIUM 8.8 MG/DL (8.5-10.1); CREATININE 0.46 MG/DL (0.60-1.30)
[2017-10-20] MEDS: FAMOTIDINE 20 MG/2 ML VIAL IV PUSH SCH ×2 (05:41→17:46)
[2017-10-20] MEDS: ENOXAPARIN SODIUM 30 MG/0.3 ML SYRINGE SQ SCH ×2 (05:42→17:45)
[2017-10-20] MEDS: ARTIFICIAL TEARS OPTH SOLN 15 ML BTL EACH EYE SCH ×3 (05:42→22:00)
[2017-10-20] MEDS: DOCUSATE SODIUM 50 MG/SENNA 8.6 MG TAB PO SCH ×2 (08:10→21:35)
[2017-10-20] MEDS: POLYETHYLENE GLYCOL 17 GM PKG PO SCH (08:10)
[2017-10-20] MEDS: LACTULOSE SYRUP 20 GM/30 ML CUP PO SCH ×2 (08:10→21:35)
[2017-10-20] MEDS: SODIUM CHLORIDE 0.9% FLUSH 10 ML FLUSH IV FLUSH SCH ×2 (08:10→21:35)
[2017-10-20] MEDS: MAGNESIUM HYDROXIDE SUSP 30 ML CUP PO SCH ×2 (08:10→21:35)
[2017-10-20] MEDS: SODIUM CHLOR 0.9% 1000 ML INJ 1,000 ML IV SCH (08:11)
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
[2017-10-20] MEDS: fentaNYL DRIP 250 ML IV PRN ×2 (10:32→22:30)
--- NOTE | 2017-10-20 13:57 | RADRPT ---
EXAM DATE: 10/20/2017 1:51 PM EDT AGE/SEX: 47 years / Male INDICATIONS: Dobbhoff placement. CLINICAL DATA: This is the patient's subsequent encounter. Patient reports that signs and symptoms h ave been present for 4 - 6 days and indicates a pain score of Nonresponsive. MEDICAL/SURGICAL HISTORY: . Cervical fracture . Cervical spine surgery. COMPARISON: [facility] [place], CHEST SINGLE AP, 10/15/2017. . FINDINGS: Halo present and limits the study. Mild left base atelectasis seen and not significantly changed. I b elieve a small left pleural effusion is developing. I don't see a pneumothorax. Endotracheal tube tip is approximately 5 cm above the dorene. Dobbhoff feeding tube has been placed since the prior study. The tip is in the upper to mid stomach. CONCLUSION: 1. Mild atelectasis and small pleural effusion at the left lung base. 2. Patient remains intubated; endotracheal tube tip is approximately 5 cm above the dorene. 3. Dobbhoff feeding tube tip is in the mid to upper stomach. Electronically signed by: Gómez Thacker MD 10/20/2017 1:56 PM EDT
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
--- NOTE | 2017-10-20 17:05 | HHI.NSPN ---
History Interval History Patient has remained stable and is doing well Exam Results Vital Signs Date Time Temp Pulse Resp B/P (MAP) Pulse Ox O2 Delivery O2 Flow Rate FiO2 10/20/17 12:00 97.8 80 18 132/82 (99) 99 10/20/17 12:00 30 10/20/17 07:00 Mechanical Ventilator Intake and Output 10/20/17 10/20/17 10/21/17 08:00 16:00 00:00 Intake Total 50 ml Output Total 1500 ml Balance -1450 ml Physical Examination Patient alert and awake. Follows commands. Moves all extremities to command Remains in a halo vest Medical Decision Making Impression and Plan Patient stable from neurosurgical standpoint Continue support Mikhail Freeman MD Oct 20, 2017 17:05
[2017-10-21] VITALS (17 sets, daily range): BP systolic 107–117; BP diastolic 68–74; PULSE 65–90; RESP 14–15; TEMP 97.8–98.8; O2SAT 96–100
[2017-10-21] MEDS: MIDAZOLAM 50 MG/50 ML INJ 50 ML IV PRN ×5 (00:02→21:42)
[2017-10-21] MEDS: SODIUM CHLOR 0.9% 1000 ML INJ 1,000 ML IV SCH ×2 (02:05→18:45)
[2017-10-21] MEDS: CHLORHEXIDINE GLUCONATE 2 % 1 PACK (2 CLOTHS) TOP SCH (04:00)
[2017-10-21] MEDS: ENOXAPARIN SODIUM 30 MG/0.3 ML SYRINGE SQ SCH ×2 (05:07→16:40)
[2017-10-21] MEDS: ARTIFICIAL TEARS OPTH SOLN 15 ML BTL EACH EYE SCH ×3 (05:07→21:38)
[2017-10-21] MEDS: FAMOTIDINE 20 MG/2 ML VIAL IV PUSH SCH ×2 (05:07→16:40)
[2017-10-21 06:58] LABS: HEMATOCRIT 32.2 % (39.0-51.0); HEMOGLOBIN 11.3 GM/DL (13.0-17.0); MEAN CELL VOLUME 94.1 FL (80.0-100.0); MEAN CORPUSCULAR HEMOGLOBIN 33.1 PG (27.0-34.0); MEAN CORPUSCULAR HGB CONC 35.2 % (32.0-36.0); MEAN PLATELET VOLUME 10.1 FL (7.0-11.0); PLATELET COUNT 257 TH/MM3 (150-450); RED BLOOD COUNT 3.43 MIL/MM3 (4.50-5.90); RED CELL DISTRIBUTION WIDTH 12.5 % (11.6-17.2); WHITE BLOOD COUNT 7.2 TH/MM3 (4.0-11.0)
[2017-10-21 07:23] LABS: BICARBONATE 23.1 MEQ/L (21.0-32.0); CALCIUM 8.2 MG/DL (8.5-10.1); CREATININE 0.5 MG/DL (0.60-1.30)
[2017-10-21] MEDS: POTASSIUM CHLOR 20 MEQ PREMIX 100 ML IV PRN (07:35)
[2017-10-21] MEDS: POLYETHYLENE GLYCOL 17 GM PKG PO SCH (09:00)
[2017-10-21] MEDS: BISACODYL 10 MG SUPP RECTAL SCH (09:00)
[2017-10-21] MEDS: MAGNESIUM HYDROXIDE SUSP 30 ML CUP PO SCH ×2 (09:00→20:44)
[2017-10-21] MEDS: SODIUM CHLORIDE 0.9% FLUSH 10 ML FLUSH IV FLUSH SCH ×2 (09:00→21:38)
[2017-10-21] MEDS: LACTULOSE SYRUP 20 GM/30 ML CUP PO SCH ×2 (09:09→20:44)
[2017-10-21] MEDS: DOCUSATE SODIUM 50 MG/SENNA 8.6 MG TAB PO SCH ×2 (09:09→20:44)
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
[2017-10-21] MEDS: fentaNYL DRIP 250 ML IV PRN ×2 (10:47→23:30)
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
[2017-10-22] VITALS (17 sets, daily range): BP systolic 92–155; BP diastolic 57–101; PULSE 80–102; RESP 14–17; TEMP 97.8–99.8; O2SAT 94–100
[2017-10-22] MEDS: MIDAZOLAM 50 MG/50 ML INJ 50 ML IV PRN ×4 (03:30→20:49)
--- NOTE | 2017-10-22 03:58 | RADRPT ---
EXAM DATE: 10/22/2017 3:42 AM EDT AGE/SEX: 47 years / Male INDICATIONS: Effusion. CLINICAL DATA: This is the patient's subsequent encounter. Patient reports that signs and symptoms h ave been present for 2 weeks and indicates a pain score of Nonresponsive. MEDICAL/SURGICAL HISTORY: . Cervical fracture. . Cervical spinal surgery. Halo placement. COMPARISON: [facility] – [place], CHEST SINGLE AP, 10/20/2017. . FINDINGS: The lungs are grossly clear. No definite pleural effusions are seen. Heart size is stable. No definit e pneumothorax is demonstrated. The bony structures are stable. CONCLUSION: The lungs are grossly clear. No definite pleural effusions. Electronically signed by: Brian Martinez MD 10/22/2017 3:56 AM EDT
[2017-10-22] MEDS: CHLORHEXIDINE GLUCONATE 2 % 1 PACK (2 CLOTHS) TOP SCH (04:00)
[2017-10-22 05:34] LABS: AUTOMATED NEUTROPHIL # 5.6 TH/MM3 (1.8-7.7); BASOPHIL % 0.2 % (0.0-2.0); EOSINOPHIL # 0.1 TH/MM3 (0-0.4); HEMOGLOBIN 11.6 GM/DL (13.0-17.0); LYMPH % 16.3 % (9.0-44.0); LYMPHOCYTE # 1.3 TH/MM3 (1.0-4.8); MEAN CELL VOLUME 93.9 FL (80.0-100.0); MEAN CORPUSCULAR HGB CONC 35.1 % (32.0-36.0); MEAN PLATELET VOLUME 10.1 FL (7.0-11.0); MONO % 14.7 % (0.0-8.0); MONOCYTE # 1.2 TH/MM3 (0-0.9); NEUT % 67.8 % (16.0-70.0); PLATELET COUNT 293 TH/MM3 (150-450); RED BLOOD COUNT 3.51 MIL/MM3 (4.50-5.90); RED CELL DISTRIBUTION WIDTH 12.1 % (11.6-17.2); WHITE BLOOD COUNT 8.2 TH/MM3 (4.0-11.0)
[2017-10-22] MEDS: ENOXAPARIN SODIUM 30 MG/0.3 ML SYRINGE SQ SCH ×2 (05:50→17:06)
[2017-10-22] MEDS: FAMOTIDINE 20 MG/2 ML VIAL IV PUSH SCH ×2 (05:50→17:07)
[2017-10-22 05:56] LABS: BICARBONATE 22.3 MEQ/L (21.0-32.0); CALCIUM 8.5 MG/DL (8.5-10.1); CREATININE 0.53 MG/DL (0.60-1.30)
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
[2017-10-22] MEDS: ARTIFICIAL TEARS OPTH SOLN 15 ML BTL EACH EYE SCH ×3 (06:03→22:15)
[2017-10-22] MEDS: POTASSIUM CHLOR 20 MEQ PREMIX 100 ML IV PRN (06:22)
[2017-10-22] MEDS: SODIUM CHLORIDE 0.9% FLUSH 10 ML FLUSH IV FLUSH SCH ×2 (08:00→20:36)
[2017-10-22] MEDS: LACTULOSE SYRUP 20 GM/30 ML CUP PO SCH ×2 (08:08→20:36)
[2017-10-22] MEDS: DOCUSATE SODIUM 50 MG/SENNA 8.6 MG TAB PO SCH ×2 (08:08→20:36)
[2017-10-22] MEDS: MORPHINE SULFATE 4 MG/ML INJ IV PUSH PRN ×4 (08:09→22:26)
[2017-10-22] MEDS: MAGNESIUM HYDROXIDE SUSP 30 ML CUP PO SCH ×2 (08:35→20:36)
[2017-10-22] MEDS: POLYETHYLENE GLYCOL 17 GM PKG PO SCH (08:36)
[2017-10-22] MEDS: BISACODYL 10 MG SUPP RECTAL SCH (08:36)
[2017-10-22] MEDS: fentaNYL DRIP 250 ML IV PRN (09:22)
[2017-10-22] MEDS ORDERED: fentaNYL DRIP 250 ML IV PRN (09:45)
[2017-10-22] MEDS: oxyCODONE HCL ORAL CONC 5 MG/0.25 ML SYRINGE PO SCH ×4 (10:31→22:54)
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
[2017-10-22] MEDS: ONDANSETRON ODT 4 MG TAB PO PRN ×2 (13:17→22:27)
[2017-10-22] MEDS: FREE WATER G-TUBE SCH ×2 (14:00→22:00)
--- NOTE | 2017-10-22 16:25 | RADRPT ---
EXAM DATE: 10/22/2017 4:20 PM EDT AGE/SEX: 47 years / Male INDICATIONS: Dyspnea, evaluate for aspiration and NG tube placement CLINICAL DATA: This is the patient's subsequent encounter. Patient reports that signs and symptoms h ave been present for 2 weeks and indicates a pain score of Nonresponsive. MEDICAL/SURGICAL HISTORY: . cervical spine fracture . cervical spine fracture repair and halo placement [place] [facility] [place]. . FINDINGS: A single AP view of the chest demonstrates the lungs to be poorly aerated without evidence of mass, i nfiltrate or effusion. ET tube and NG tube both in good position. No visible pneumothorax The cardio mediastinal contours are unremarkable. Osseous structures are intact. CONCLUSION: Small lung volumes bilaterally. NG tube and ET tube in good position Electronically signed by: Earl Poe MD 10/22/2017 4:24 PM EDT
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
[2017-10-23] VITALS (18 sets, daily range): BP systolic 93–153; BP diastolic 55–94; PULSE 76–129; RESP 12–19; TEMP 99.3–101; O2SAT 92–100
[2017-10-23] MEDS: MORPHINE SULFATE 4 MG/ML INJ IV PUSH PRN ×6 (00:37→14:05)
[2017-10-23] MEDS: MIDAZOLAM 50 MG/50 ML INJ 50 ML IV PRN ×5 (01:55→23:58)
[2017-10-23] MEDS: oxyCODONE HCL ORAL CONC 5 MG/0.25 ML SYRINGE PO SCH ×6 (03:05→23:45)
[2017-10-23] MEDS: CHLORHEXIDINE GLUCONATE 2 % 1 PACK (2 CLOTHS) TOP SCH (03:07)
[2017-10-23] MEDS: FAMOTIDINE 20 MG/2 ML VIAL IV PUSH SCH (04:29)
[2017-10-23] MEDS: ENOXAPARIN SODIUM 30 MG/0.3 ML SYRINGE SQ SCH ×2 (04:29→17:00)
[2017-10-23] MEDS: ARTIFICIAL TEARS OPTH SOLN 15 ML BTL EACH EYE SCH ×3 (05:59→22:33)
[2017-10-23] MEDS: FREE WATER G-TUBE SCH ×3 (05:59→22:34)
[2017-10-23 06:45] LABS: AUTOMATED NEUTROPHIL # 12.9 TH/MM3 (1.8-7.7); BASOPHIL % 0.1 % (0.0-2.0); EOSINOPHIL % 0.1 % (0.0-4.0); HEMATOCRIT 37.8 % (39.0-51.0); HEMOGLOBIN 12.9 GM/DL (13.0-17.0); LYMPH % 5.5 % (9.0-44.0); LYMPHOCYTE # 0.8 TH/MM3 (1.0-4.8); MEAN CORPUSCULAR HEMOGLOBIN 32.4 PG (27.0-34.0); MEAN CORPUSCULAR HGB CONC 34.1 % (32.0-36.0); MEAN PLATELET VOLUME 10.6 FL (7.0-11.0); MONO % 8.3 % (0.0-8.0); MONOCYTE # 1.3 TH/MM3 (0-0.9); PLATELET COUNT 285 TH/MM3 (150-450); RED BLOOD COUNT 3.98 MIL/MM3 (4.50-5.90); RED CELL DISTRIBUTION WIDTH 12.4 % (11.6-17.2); WHITE BLOOD COUNT 15.1 TH/MM3 (4.0-11.0)
[2017-10-23 07:08] LABS: BICARBONATE 25.8 MEQ/L (21.0-32.0); CREATININE 0.64 MG/DL (0.60-1.30)
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
[2017-10-23] MEDS: QUEtiapine FUMARATE 100 MG TAB PO SCH ×3 (08:07→23:45)
[2017-10-23] MEDS: DEXMEDETOMIDINE INJ 200 MCG in SODIUM CHLORIDE 0.9% INJ 50 ML IV PRN ×2 (08:07→11:41)
[2017-10-23] MEDS: SODIUM CHLORIDE 0.9% FLUSH 10 ML FLUSH IV FLUSH SCH ×2 (08:07→19:58)
[2017-10-23] MEDS: cefTRIAXone INJ 1,000 MG in SODIUM CHLORIDE 0.9% INJ 100 ML IV SCH (08:07)
[2017-10-23] MEDS: LACTULOSE SYRUP 20 GM/30 ML CUP PO SCH ×2 (09:00→19:58)
[2017-10-23] MEDS: POLYETHYLENE GLYCOL 17 GM PKG PO SCH (09:00)
[2017-10-23] MEDS: MAGNESIUM HYDROXIDE SUSP 30 ML CUP PO SCH ×2 (09:00→19:58)
[2017-10-23] MEDS: DOCUSATE SODIUM 50 MG/SENNA 8.6 MG TAB PO SCH ×2 (09:00→19:58)
[2017-10-23] MEDS: BISACODYL 10 MG SUPP RECTAL SCH (09:00)
[2017-10-23] MEDS: SODIUM CHLOR 0.9% 1000 ML INJ 1,000 ML IV SCH (10:00)
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
[2017-10-23 10:30] LABS: BILIRUBIN, URINE NEG (NEG); BLOOD, URINE NEG (NEG); GLUCOSE,URINE NEG (NEG); KETONE, URINE NEG (NEG); MUCUS URINE FEW /lpf (OCC); NITRITE,URINE NEG (NEG); URINE COLOR YELLOW (YELLW/STRAW); URINE LEUKOCYTE ESTERASE NEG (NEG)
--- NOTE | 2017-10-23 10:35 | RADRPT ---
EXAM DATE: 10/23/2017 10:13 AM EDT AGE/SEX: 47 years / Male INDICATIONS: Trauma F/U CLINICAL DATA: This is the patient's subsequent encounter. Patient reports that signs and symptoms h ave been present for 2 weeks and indicates a pain score of Nonresponsive. MEDICAL/SURGICAL HISTORY: . Cervical spine fracture. . Cervical spine fracture repair and halo placement. COMPARISON: [facility] [place], CHEST SINGLE AP, 10/22/2017. . FINDINGS: A single portable frontal view of the chest shows a halo device generating artifact. Low lung volumes noted. Bibasilar pulmonary consolidations are more pronounced from the prior study. No effusion on t he right. Blunting of the left costophrenic angle suggesting a tiny effusion. Heart is normal in size . Tip of the endotracheal tube 8 cm from the dorene. Nasogastric tube coiled in the fundus. CONCLUSION: Worsening bibasilar consolidations with tiny left effusion. Electronically signed by: Jimmy Fontaine MD 10/23/2017 10:33 AM EDT
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
[2017-10-23] MEDS: fentaNYL DRIP 250 ML IV PRN (14:05)
[2017-10-23] MEDS: FAMOTIDINE 20 MG TAB PO SCH (19:59)
[2017-10-24] VITALS (19 sets, daily range): BP systolic 101–155; BP diastolic 50–95; PULSE 70–119; RESP 12–15; TEMP 97.9–100; O2SAT 96–100
[2017-10-24] MEDS: SODIUM CHLOR 0.9% 1000 ML INJ 1,000 ML IV SCH ×3 (00:01→21:45)
[2017-10-24] MEDS: oxyCODONE HCL ORAL CONC 5 MG/0.25 ML SYRINGE PO SCH ×6 (02:26→23:41)
[2017-10-24] MEDS: CHLORHEXIDINE GLUCONATE 2 % 1 PACK (2 CLOTHS) TOP SCH (03:30)
[2017-10-24] MEDS: ENOXAPARIN SODIUM 30 MG/0.3 ML SYRINGE SQ SCH ×2 (03:31→15:34)
[2017-10-24] MEDS: FREE WATER G-TUBE SCH ×3 (03:32→21:49)
[2017-10-24] MEDS: MIDAZOLAM 50 MG/50 ML INJ 50 ML IV PRN ×5 (04:06→22:21)
[2017-10-24] MEDS: fentaNYL DRIP 250 ML IV PRN ×2 (05:27→20:25)
[2017-10-24] MEDS: ARTIFICIAL TEARS OPTH SOLN 15 ML BTL EACH EYE SCH ×3 (05:45→21:48)
--- NOTE | 2017-10-24 05:51 | RADRPT ---
EXAM DATE: 10/24/2017 5:46 AM EDT AGE/SEX: 47 years / Male INDICATIONS: Short of breath. CLINICAL DATA: This is the patient's subsequent encounter. Patient reports that signs and symptoms h ave been present for 2 weeks and indicates a pain score of 0/10. MEDICAL/SURGICAL HISTORY: . Cervical spine fracture None. COMPARISON: No prior exams available for comparison. FINDINGS: Endotracheal tube in good position. NG tube coiled in stomach. Basilar airspace disease, left greater than right and small left effusion. No pneumothorax. Heart size upper limits normal. CONCLUSION: Electronically signed by: Mich Garcia MD 10/24/2017 5:50 AM EDT
[2017-10-24 05:52] LABS: AUTOMATED NEUTROPHIL # 6.9 TH/MM3 (1.8-7.7); BASOPHIL % 0.3 % (0.0-2.0); EOSINOPHIL # 0.2 TH/MM3 (0-0.4); EOSINOPHIL % 2.2 % (0.0-4.0); HEMATOCRIT 34.2 % (39.0-51.0); HEMOGLOBIN 11.8 GM/DL (13.0-17.0); LYMPH % 19.8 % (9.0-44.0); LYMPHOCYTE # 2.1 TH/MM3 (1.0-4.8); MEAN CORPUSCULAR HEMOGLOBIN 33.1 PG (27.0-34.0); MEAN CORPUSCULAR HGB CONC 34.5 % (32.0-36.0); MEAN PLATELET VOLUME 9.9 FL (7.0-11.0); MONO % 14.3 % (0.0-8.0); MONOCYTE # 1.5 TH/MM3 (0-0.9); NEUT % 63.4 % (16.0-70.0); PLATELET COUNT 297 TH/MM3 (150-450); RED BLOOD COUNT 3.56 MIL/MM3 (4.50-5.90); RED CELL DISTRIBUTION WIDTH 12.5 % (11.6-17.2); WHITE BLOOD COUNT 10.8 TH/MM3 (4.0-11.0)
[2017-10-24 06:09] LABS: BICARBONATE 22.5 MEQ/L (21.0-32.0); CALCIUM 8.7 MG/DL (8.5-10.1); CREATININE 0.97 MG/DL (0.60-1.30)
[2017-10-24] MEDS: cefTRIAXone INJ 1,000 MG in SODIUM CHLORIDE 0.9% INJ 100 ML IV SCH (08:49)
[2017-10-24] MEDS: DOCUSATE SODIUM 50 MG/SENNA 8.6 MG TAB PO SCH ×2 (08:50→19:50)
[2017-10-24] MEDS: QUEtiapine FUMARATE 100 MG TAB PO SCH ×3 (08:50→23:42)
[2017-10-24] MEDS: FAMOTIDINE 20 MG TAB PO SCH ×2 (08:50→19:51)
[2017-10-24] MEDS: MAGNESIUM HYDROXIDE SUSP 30 ML CUP PO SCH ×2 (08:51→19:50)
[2017-10-24] MEDS: POLYETHYLENE GLYCOL 17 GM PKG PO SCH (08:51)
[2017-10-24] MEDS: SODIUM CHLORIDE 0.9% FLUSH 10 ML FLUSH IV FLUSH SCH ×2 (08:51→19:50)
[2017-10-24] MEDS: LACTULOSE SYRUP 20 GM/30 ML CUP PO SCH ×2 (08:51→19:50)
[2017-10-24] MEDS: BISACODYL 10 MG SUPP RECTAL SCH (08:51)
[2017-10-24] MEDS: DEXT 5%-NACL 0.45% 1000 ML INJ 1,000 ML IV SCH (10:00)
[2017-10-24] MEDS ORDERED: ROCURONIUM INJ 50 MG/5 ML VIAL ONE (10:39)
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
--- NOTE | 2017-10-24 16:06 | PD.PROCEDR ---
Procedure Note Procedure Procedure: Diagnostic Fiberoptic Bronchoscopy Diagnosis: Chronic respiratory failure Indications: Need for placement of percutaneous dilation tracheostomy Consent: Written consent was obtained Anesthesia: Versed 12 mg IV, fentanyl 300 mcg IV, rocuronium 100 mg IV Description of the Procedure: The patient was sedated and mechanically ventilated. The patient was placed on 100% FIO2 and a volume control mode of ventilation. The fiberoptic bronchoscopy was inserted via oral endotracheal tube. The trachea, right and left mainstem bronchi, and sub-segmental bronchi were evaluated. The endobronchial anatomy was normal. At this point, the percutaneous dilation tracheostomy procedure was performed. The needle, guidewire, dilator, and tracheostomy were all performed under direct bronchoscopic guidance and visualization. Once the tracheostomy was in place, the bronchoscope was inserted through the tracheostomy, and the lumen of the tracheostomy was confirmed in the lumen of the trachea prior to any positive pressure ventilation. Findings: Moderate amount of thick white secretions were aggressively suctioned from bilateral large airways. BAL samples: No samples were sent. The patient tolerated the procedure well with no hemodynamic instability or hypoxia. There were no immediate complications noted. At the conclusion of the procedure, the patient was placed back on their pre-procedure ventilatory settings. There was minimal EBL. A chest x-ray has been ordered. I personally performed the procedure. Jose Cameron MD Oct 24, 2017 16:06
[2017-10-24] MEDS ORDERED: ROCURONIUM INJ 50 MG/5 ML VIAL IV PUSH ONE (17:15)
[2017-10-24] MEDS: QUEtiapine FUMARATE 25 MG TAB PO SCH (19:50)
--- NOTE | 2017-10-24 21:15 | MP ---
cc: Pat Fair MD, Slobodan MD DATE OF OPERATION: 10/24/2017 PREOPERATIVE DIAGNOSIS: Respiratory failure, neck fracture. POSTOPERATIVE DIAGNOSIS: Respiratory failure, neck fracture. OPERATIVE PROCEDURE: Tracheostomy Blue Rhino and bronchoscopy. SURGEON Pat Fair MD BRONCHOSCOPY SPOOL SALVAGER: Jesus Fontaine MD. ANESTHESIA: General and 1% Xylocaine. ESTIMATED BLOOD LOSS: 5 mL DESCRIPTION OF PROCEDURE: The patient was prepped and draped in the usual fashion. The area infiltrated with 1% Xylocaine and a vertical incision is made in the neck. This one is deepened with a hemostat down to the trachea and then under bronchoscopy vision, an Angiocath is inserted between the second and third tracheal ring. Through the Angiocath, guidewire is inserted. Over the guidewire, a punch dilator was placed, followed by the Blue Rhino dilator. After that, the #8 Shiley cannula on the guide is placed and secured in position. End tidal CO2 checked and bronchoscopy performed through a cannula. There was sustained position. The area irrigated with copious amounts of saline and tracheostomy sutured to skin with 2-0 nylon and then around the neck secured with a band. The patient tolerated the procedure well. MD ELZBIETA Dominique/ , 08:25 PM , 09:13 PM
[2017-10-25] VITALS (20 sets, daily range): BP systolic 134–160; BP diastolic 67–87; PULSE 75–120; RESP 12–18; TEMP 98.4–100.8; O2SAT 95–100
[2017-10-25] MEDS: ACETAMINOPHEN 1000 MG/100 ML 100 ML IV PRN ×2 (00:36→20:59)
[2017-10-25] MEDS: oxyCODONE HCL ORAL CONC 5 MG/0.25 ML SYRINGE PO SCH ×6 (02:58→22:59)
[2017-10-25] MEDS: MIDAZOLAM 50 MG/50 ML INJ 50 ML IV PRN ×2 (02:59→09:08)
[2017-10-25] MEDS: CHLORHEXIDINE GLUCONATE 2 % 1 PACK (2 CLOTHS) TOP SCH (04:00)
--- NOTE | 2017-10-25 04:50 | RADRPT ---
EXAM DATE: 10/25/2017 4:43 AM EDT AGE/SEX: 47 years / Male INDICATIONS: Follow up trauma. CLINICAL DATA: This is the patient's subsequent encounter. Patient reports that signs and symptoms h ave been present for 2 weeks and indicates a pain score of Nonresponsive. MEDICAL/SURGICAL HISTORY: . Cervical spine fracture None. COMPARISON: [facility] [place], CHEST SINGLE AP, 10/24/2017. . FINDINGS: Tracheostomy in good position. NG enters stomach. Basilar airspace consolidation without significant effusion. No pneumothorax. Heart size enlarged. CONCLUSION: Basilar airspace disease similar to October 24. Endotracheal tube replaced with tracheostomy tube. NG ent ers stomach. Electronically signed by: Mich Garcia MD 10/25/2017 4:49 AM EDT
[2017-10-25 05:26] LABS: AUTOMATED NEUTROPHIL # 6.9 TH/MM3 (1.8-7.7); BASOPHIL % 0.3 % (0.0-2.0); EOSINOPHIL # 0.2 TH/MM3 (0-0.4); EOSINOPHIL % 1.7 % (0.0-4.0); HEMATOCRIT 35.8 % (39.0-51.0); HEMOGLOBIN 12.3 GM/DL (13.0-17.0); LYMPH % 13.1 % (9.0-44.0); LYMPHOCYTE # 1.3 TH/MM3 (1.0-4.8); MEAN CELL VOLUME 95.3 FL (80.0-100.0); MEAN CORPUSCULAR HEMOGLOBIN 32.7 PG (27.0-34.0); MEAN CORPUSCULAR HGB CONC 34.3 % (32.0-36.0); MEAN PLATELET VOLUME 10.4 FL (7.0-11.0); MONOCYTE # 1.4 TH/MM3 (0-0.9); NEUT % 70.9 % (16.0-70.0); PLATELET COUNT 293 TH/MM3 (150-450); RED BLOOD COUNT 3.75 MIL/MM3 (4.50-5.90); RED CELL DISTRIBUTION WIDTH 12.3 % (11.6-17.2); WHITE BLOOD COUNT 9.7 TH/MM3 (4.0-11.0)
[2017-10-25] MEDS: ENOXAPARIN SODIUM 30 MG/0.3 ML SYRINGE SQ SCH ×2 (05:29→15:42)
[2017-10-25] MEDS: DEXT 5%-NACL 0.45% 1000 ML INJ 1,000 ML IV SCH (05:29)
[2017-10-25] MEDS: ARTIFICIAL TEARS OPTH SOLN 15 ML BTL EACH EYE SCH ×3 (05:29→20:58)
[2017-10-25] MEDS: FREE WATER G-TUBE SCH ×3 (05:30→20:58)
[2017-10-25 05:55] LABS: ALBUMIN 2.6 GM/DL (3.4-5.0); ALT (GPT) 37 U/L (12-78); AST (GOT) 14 U/L (15-37); BLOOD UREA NITROGEN 12 MG/DL (7-18); CALCIUM 8.6 MG/DL (8.5-10.1); CHLORIDE 105 MEQ/L (98-107); CREATININE 0.74 MG/DL (0.60-1.30); GLOMERULAR FILTRATION RATE 114 ML/MIN (>89); GLUCOSE,RANDOM 86 MG/DL (74-106); SODIUM (NA) 140 MEQ/L (136-145)
[2017-10-25 05:57] LABS: ALKALINE PHOSPHATASE 80 U/L (45-117); TOTAL BILIRUBIN ADULT 0.5 MG/DL (0.2-1.0); TOTAL PROTEIN 6.9 GM/DL (6.4-8.2)
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
[2017-10-25] MEDS: BISACODYL 10 MG SUPP RECTAL SCH (09:00)
[2017-10-25] MEDS: POLYETHYLENE GLYCOL 17 GM PKG PO SCH (09:07)
[2017-10-25] MEDS: cefTRIAXone INJ 1,000 MG in SODIUM CHLORIDE 0.9% INJ 100 ML IV SCH (09:07)
[2017-10-25] MEDS: MAGNESIUM HYDROXIDE SUSP 30 ML CUP PO SCH ×2 (09:08→20:57)
[2017-10-25] MEDS: QUEtiapine FUMARATE 100 MG TAB PO SCH ×3 (09:08→22:59)
[2017-10-25] MEDS: LACTULOSE SYRUP 20 GM/30 ML CUP PO SCH ×2 (09:08→20:57)
[2017-10-25] MEDS: DOCUSATE SODIUM 50 MG/SENNA 8.6 MG TAB PO SCH ×2 (09:08→20:56)
[2017-10-25] MEDS: FAMOTIDINE 20 MG TAB PO SCH ×2 (09:09→20:56)
[2017-10-25] MEDS: SODIUM CHLORIDE 0.9% FLUSH 10 ML FLUSH IV FLUSH SCH ×2 (09:09→20:57)
[2017-10-25] MEDS: SODIUM CHLOR 0.9% 1000 ML INJ 1,000 ML IV SCH (09:09)
[2017-10-25] MEDS: fentaNYL DRIP 250 ML IV PRN (12:54)
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
[2017-10-25] MEDS ORDERED: METHYLNALTREXONE BROMIDE 12 MG/0.6 ML VIAL SQ ONE (17:00)
[2017-10-25] MEDS ORDERED: MAGNESIUM CITRATE SOLN 300 ML BTL PO ONE (17:00)
[2017-10-25] MEDS ORDERED: FUROSEMIDE 20 MG/2 ML VIAL IV PUSH ONE (17:00)
[2017-10-25] MEDS: PROPRANOLOL HCL 20 MG TAB PO SCH ×2 (18:02→20:56)
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
[2017-10-25] MEDS: QUEtiapine FUMARATE 25 MG TAB PO SCH (20:56)
[2017-10-26] VITALS (16 sets, daily range): BP systolic 110–138; BP diastolic 74–90; PULSE 87–113; RESP 13–26; TEMP 98.7–100.4; O2SAT 92–100
[2017-10-26] MEDS: DEXT 5%-NACL 0.45% 1000 ML INJ 1,000 ML IV SCH (02:01)
[2017-10-26] MEDS: oxyCODONE HCL ORAL CONC 5 MG/0.25 ML SYRINGE PO SCH ×6 (03:04→23:32)
[2017-10-26] MEDS: HALOPERIDOL LACTATE 5 MG/ML AMP IV PUSH PRN (03:04)
[2017-10-26] MEDS: CHLORHEXIDINE GLUCONATE 2 % 1 PACK (2 CLOTHS) TOP SCH ×2 (03:10→23:33)
[2017-10-26 04:00] LABS: AUTOMATED NEUTROPHIL # 6.1 TH/MM3 (1.8-7.7); BASOPHIL % 0.3 % (0.0-2.0); EOSINOPHIL # 0.1 TH/MM3 (0-0.4); EOSINOPHIL % 1.3 % (0.0-4.0); HEMATOCRIT 34.9 % (39.0-51.0); LYMPH % 14.3 % (9.0-44.0); LYMPHOCYTE # 1.2 TH/MM3 (1.0-4.8); MEAN CELL VOLUME 94.2 FL (80.0-100.0); MEAN CORPUSCULAR HEMOGLOBIN 32.4 PG (27.0-34.0); MEAN CORPUSCULAR HGB CONC 34.3 % (32.0-36.0); MONO % 12.5 % (0.0-8.0); MONOCYTE # 1.1 TH/MM3 (0-0.9); NEUT % 71.6 % (16.0-70.0); PLATELET COUNT 321 TH/MM3 (150-450); RED CELL DISTRIBUTION WIDTH 12.3 % (11.6-17.2); WHITE BLOOD COUNT 8.5 TH/MM3 (4.0-11.0)
[2017-10-26 04:18] LABS: ALBUMIN 2.7 GM/DL (3.4-5.0); ALT (GPT) 33 U/L (12-78); AST (GOT) 16 U/L (15-37); BLOOD UREA NITROGEN 6 MG/DL (7-18); CALCIUM 8.8 MG/DL (8.5-10.1); CHLORIDE 104 MEQ/L (98-107); CREATININE 0.57 MG/DL (0.60-1.30); GLOMERULAR FILTRATION RATE 155 ML/MIN (>89); GLUCOSE,RANDOM 96 MG/DL (74-106); SODIUM (NA) 140 MEQ/L (136-145)
[2017-10-26 04:20] LABS: ALKALINE PHOSPHATASE 88 U/L (45-117); TOTAL BILIRUBIN ADULT 0.6 MG/DL (0.2-1.0); TOTAL PROTEIN 7.1 GM/DL (6.4-8.2)
[2017-10-26] MEDS: fentaNYL DRIP 250 ML IV PRN (04:23)
--- NOTE | 2017-10-26 04:26 | RADRPT ---
EXAM DATE: 10/26/2017 3:50 AM EDT AGE/SEX: 47 years / Male INDICATIONS: Shortness of breath CLINICAL DATA: This is the patient's subsequent encounter. Patient reports that signs and symptoms h ave been present for 2 weeks and indicates a pain score of Nonresponsive. MEDICAL/SURGICAL HISTORY: . Cervical spine fracture Non-responsive. COMPARISON: [facility] [place], 10/25/2017. . FINDINGS: Tracheostomy in good position. NG tip in stomach. Mild basilar airspace disease slightly improved on the left since October 25. No pneumothorax. CONCLUSION: Slight improvement in left basilar airspace disease. Tracheostomy and NG tube unchanged. Electronically signed by: Mich Garcia MD 10/26/2017 4:25 AM EDT
[2017-10-26] MEDS: PROPRANOLOL HCL 20 MG TAB PO SCH ×3 (05:01→20:34)
[2017-10-26] MEDS: ENOXAPARIN SODIUM 30 MG/0.3 ML SYRINGE SQ SCH ×2 (05:01→16:13)
[2017-10-26] MEDS: FREE WATER G-TUBE SCH ×3 (05:01→22:00)
[2017-10-26] MEDS: ARTIFICIAL TEARS OPTH SOLN 15 ML BTL EACH EYE SCH ×3 (05:02→22:00)
[2017-10-26] MEDS: DOCUSATE SODIUM 50 MG/SENNA 8.6 MG TAB PO SCH ×2 (08:41→21:00)
[2017-10-26] MEDS: QUEtiapine FUMARATE 100 MG TAB PO SCH ×3 (08:41→23:32)
[2017-10-26] MEDS: FAMOTIDINE 20 MG TAB PO SCH ×2 (08:41→20:34)
[2017-10-26] MEDS: SODIUM CHLORIDE 0.9% FLUSH 10 ML FLUSH IV FLUSH SCH ×2 (08:44→21:04)
[2017-10-26] MEDS: cefTRIAXone INJ 1,000 MG in SODIUM CHLORIDE 0.9% INJ 100 ML IV SCH (08:44)
[2017-10-26] MEDS: MAGNESIUM HYDROXIDE SUSP 30 ML CUP PO SCH ×2 (08:44→21:00)
[2017-10-26] MEDS: BISACODYL 10 MG SUPP RECTAL SCH (08:45)
[2017-10-26] MEDS: POLYETHYLENE GLYCOL 17 GM PKG PO SCH (08:45)
[2017-10-26] MEDS: LACTULOSE SYRUP 20 GM/30 ML CUP PO SCH ×2 (08:45→21:00)
[2017-10-26] MEDS: DEXTROSE 5% IN WATE 1000ML INJ 1,000 ML IV SCH (12:30)
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
[2017-10-26] MEDS: QUEtiapine FUMARATE 25 MG TAB PO SCH (20:34)
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
[2017-10-27] VITALS (15 sets, daily range): BP systolic 115–147; BP diastolic 78–105; PULSE 103–138; RESP 12–30; TEMP 99.1–99.9; O2SAT 94–99
[2017-10-27] MEDS: oxyCODONE HCL ORAL CONC 5 MG/0.25 ML SYRINGE PO SCH ×5 (03:00→20:11)
--- NOTE | 2017-10-27 03:51 | RADRPT ---
EXAM DATE: 10/27/2017 3:48 AM EDT AGE/SEX: 47 years / Male INDICATIONS: Respiratory disease. CLINICAL DATA: This is the patient's subsequent encounter. Patient reports that signs and symptoms h ave been present for 2 weeks and indicates a pain score of Nonresponsive. MEDICAL/SURGICAL HISTORY: . Cervical spine fracture None. COMPARISON: [facility] [place], CHEST SINGLE AP, 10/26/2017. . FINDINGS: A single AP view of the chest demonstrates the lungs to be symmetrically aerated without evidence of mass, infiltrate or effusion. The cardiomediastinal contours are unremarkable. Osseous structures a re intact. Tracheostomy tube in good position. CONCLUSION: Lungs are grossly clear. Electronically signed by: Earl Poe MD 10/27/2017 3:49 AM EDT
[2017-10-27] MEDS: SODIUM CHLORIDE 0.9% FLUSH 10 ML FLUSH IV FLUSH PRN (04:26)
[2017-10-27] MEDS: PROCHLORPERAZINE INJ 10 MG/2 ML VIAL IV PRN (04:26)
[2017-10-27] MEDS: DEXT 5%-NACL 0.45% 1000 ML INJ 1,000 ML IV SCH (04:29)
[2017-10-27] MEDS: ENOXAPARIN SODIUM 30 MG/0.3 ML SYRINGE SQ SCH ×2 (05:00→16:20)
[2017-10-27] MEDS: FREE WATER G-TUBE SCH ×3 (05:04→20:09)
[2017-10-27] MEDS: ARTIFICIAL TEARS OPTH SOLN 15 ML BTL EACH EYE SCH ×3 (05:04→20:09)
[2017-10-27 05:07] LABS: AUTOMATED NEUTROPHIL # 23.9 TH/MM3 (1.8-7.7); BASOPHIL % 0.1 % (0.0-2.0); HEMATOCRIT 39.1 % (39.0-51.0); HEMOGLOBIN 13.6 GM/DL (13.0-17.0); LYMPH % 3.2 % (9.0-44.0); LYMPHOCYTE # 0.8 TH/MM3 (1.0-4.8); MEAN CELL VOLUME 93.4 FL (80.0-100.0); MEAN CORPUSCULAR HEMOGLOBIN 32.6 PG (27.0-34.0); MEAN CORPUSCULAR HGB CONC 34.9 % (32.0-36.0); MEAN PLATELET VOLUME 9.7 FL (7.0-11.0); MONO % 4.7 % (0.0-8.0); MONOCYTE # 1.2 TH/MM3 (0-0.9); PLATELET COUNT 386 TH/MM3 (150-450); RED BLOOD COUNT 4.18 MIL/MM3 (4.50-5.90); RED CELL DISTRIBUTION WIDTH 12.4 % (11.6-17.2)
[2017-10-27 05:29] LABS: ALBUMIN 3.1 GM/DL (3.4-5.0); ALT (GPT) 40 U/L (12-78); AST (GOT) 26 U/L (15-37); BICARBONATE 23.4 MEQ/L (21.0-32.0); BLOOD UREA NITROGEN 12 MG/DL (7-18); CALCIUM 9.3 MG/DL (8.5-10.1); CHLORIDE 103 MEQ/L (98-107); CREATININE 0.64 MG/DL (0.60-1.30); GLOMERULAR FILTRATION RATE 135 ML/MIN (>89); GLUCOSE,RANDOM 151 MG/DL (74-106); SODIUM (NA) 140 MEQ/L (136-145)
[2017-10-27 05:31] LABS: ALKALINE PHOSPHATASE 131 U/L (45-117); TOTAL BILIRUBIN ADULT 0.7 MG/DL (0.2-1.0); TOTAL PROTEIN 8.1 GM/DL (6.4-8.2)
[2017-10-27] MEDS: PROPRANOLOL HCL 20 MG TAB PO SCH ×3 (06:00→20:08)
[2017-10-27] MEDS: HALOPERIDOL LACTATE 5 MG/ML AMP IV PUSH PRN (06:06)
[2017-10-27] MEDS: ONDANSETRON ODT 4 MG TAB PO PRN ×2 (06:06→20:23)
--- NOTE | 2017-10-27 08:40 | RADRPT ---
EXAM DATE: 10/27/2017 8:35 AM EDT AGE/SEX: 47 years / Male INDICATIONS: NG tube placement. CLINICAL DATA: This is the patient's initial encounter. Patient reports that signs and symptoms have been present for 1 day and indicates a pain score of 4/10. MEDICAL/SURGICAL HISTORY: . Cervical spine fracture . Cervical halo COMPARISON: [facility], CHEST SINGLE AP, 10/27/2017. . FINDINGS: Distal tip of NG tube overlies the expected location of the proximal stomach, side port at the expect ed location of the distal esophagus/EG junction. Nonobstructive bowel gas pattern. CONCLUSION: Enteric tube placement as above. Electronically signed by: Rodrigo Garcia MD 10/27/2017 8:38 AM EDT
[2017-10-27] MEDS: cefTRIAXone INJ 1,000 MG in SODIUM CHLORIDE 0.9% INJ 100 ML IV SCH (08:48)
[2017-10-27] MEDS: SODIUM CHLORIDE 0.9% FLUSH 10 ML FLUSH IV FLUSH SCH ×2 (08:48→20:09)
[2017-10-27] MEDS: DEXTROSE 5% IN WATE 1000ML INJ 1,000 ML IV SCH (08:50)
[2017-10-27] MEDS: POLYETHYLENE GLYCOL 17 GM PKG PO SCH (09:00)
[2017-10-27] MEDS: MAGNESIUM HYDROXIDE SUSP 30 ML CUP PO SCH ×2 (09:00→20:08)
[2017-10-27] MEDS: BISACODYL 10 MG SUPP RECTAL SCH (09:00)
[2017-10-27] MEDS: LACTULOSE SYRUP 20 GM/30 ML CUP PO SCH ×2 (09:00→20:08)
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
[2017-10-27] MEDS: METOCLOPRAMIDE HCL 10 MG/2 ML VIAL IV PUSH SCH ×2 (10:45→16:27)
[2017-10-27] MEDS: MORPHINE SULFATE 4 MG/ML INJ IV PUSH PRN (10:45)
--- NOTE | 2017-10-27 10:52 | RADRPT ---
EXAM DATE: 10/27/2017 10:47 AM EDT AGE/SEX: 47 years / Male INDICATIONS: Vomiting, reposition of NG tube CLINICAL DATA: This is the patient's subsequent encounter. Patient reports that signs and symptoms h ave been present for 1 day and indicates a pain score of 4/10. MEDICAL/SURGICAL HISTORY: . Fracture c4-5 . Cervical halo COMPARISON: No prior exams available for comparison. FINDINGS: Enteric tube is noted coiled in the left upper quadrant distal tip overlies expected location of the gastric fundus. The bowel gas pattern is nonobstructive. CONCLUSION: Enteric tube as above. Electronically signed by: Rodrigo Garcia MD 10/27/2017 10:51 AM EDT
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
[2017-10-27] MEDS: FAMOTIDINE 20 MG TAB PO SCH ×2 (12:06→20:09)
[2017-10-27] MEDS: DOCUSATE SODIUM 50 MG/SENNA 8.6 MG TAB PO SCH ×2 (12:06→20:09)
[2017-10-27] MEDS: QUEtiapine FUMARATE 100 MG TAB PO SCH ×2 (12:06→16:20)
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
[2017-10-27] MEDS ORDERED: IOHEXOL 350 MG/ML 10 ML VIAL (for RAD DIAG) IVCONTRAST ONE (14:04)
--- NOTE | 2017-10-27 14:09 | RADRPT ---
EXAM DATE: 10/27/2017 2:03 PM EDT AGE/SEX: 47 years / Male INDICATIONS: Vomiting. CLINICAL DATA: This is the patient's initial encounter. Patient reports that signs and symptoms have been present for 1 day and indicates a pain score of Nonresponsive. MEDICAL/SURGICAL HISTORY: . hernia Non-responsive. ORAL CONTRAST: No oral contrast ingested. RADIATION DOSE: 8.78 CTDI (mGy) COMPARISON: No prior exams available for comparison. TECHNIQUE: Multiple contiguous axial images were obtained through the abdomen and pelvis following b olus infusion of 90 ml Omnipaque 350 (iohexol) nonionic water-soluble contrast as a single exam dos e. No oral contrast ingested. Using automated exposure control and adjustment of the mA and/or kV ac cording to patient size, the radiation dose was kept as low as reasonably achievable to obtain optima l diagnostic quality images. FINDINGS: There is some distal airway disease at the lung bases with minimal patchy infiltrate. Mild fatty liver. NG coiled in the stomach. Spleen, adrenals, kidneys and pancreas demonstrate no acu te findings. No calcified gallstones or biliary ductal dilatation. No free fluid. No bowel obstruction. No adenopathy. No pelvic mass or adenopathy. No acute bony abnor malities. Mild ileus present. CONCLUSION: 1. Mild ileus without evidence for bowel obstruction. 2. Distal airway disease and minimal subsegmental opacity at the lung bases. Differential diagnosis includes postaspiration changes or mild pneumonia. 3. Mild fatty liver. NG coiled in stomach. Electronically signed by: Mich Garcia MD 10/27/2017 2:08 PM EDT
[2017-10-27] MEDS: QUEtiapine FUMARATE 25 MG TAB PO SCH (20:09)
[2017-10-28] VITALS (19 sets, daily range): BP systolic 116–156; BP diastolic 83–96; PULSE 98–117; RESP 11–33; TEMP 98.9–99.8; O2SAT 94–100
[2017-10-28] MEDS: oxyCODONE HCL ORAL CONC 5 MG/0.25 ML SYRINGE PO SCH ×3 (01:10→05:47)
[2017-10-28] MEDS: QUEtiapine FUMARATE 100 MG TAB PO SCH ×4 (01:10→23:08)
[2017-10-28] MEDS: METOCLOPRAMIDE HCL 10 MG/2 ML VIAL IV PUSH SCH ×3 (01:11→18:00)
[2017-10-28] MEDS: CHLORHEXIDINE GLUCONATE 2 % 1 PACK (2 CLOTHS) TOP SCH (02:11)
[2017-10-28] MEDS: ENOXAPARIN SODIUM 30 MG/0.3 ML SYRINGE SQ SCH ×3 (05:00→17:57)
[2017-10-28] MEDS: PROPRANOLOL HCL 20 MG TAB PO SCH ×3 (05:47→21:10)
[2017-10-28] MEDS: DEXTROSE 5% IN WATE 1000ML INJ 1,000 ML IV SCH (05:48)
[2017-10-28] MEDS: ARTIFICIAL TEARS OPTH SOLN 15 ML BTL EACH EYE SCH ×3 (05:48→21:10)
[2017-10-28] MEDS: FREE WATER G-TUBE SCH ×4 (05:48→21:11)
[2017-10-28] MEDS: MAGNESIUM HYDROXIDE SUSP 30 ML CUP PO SCH ×2 (09:30→21:00)
[2017-10-28] MEDS: SODIUM CHLORIDE 0.9% FLUSH 10 ML FLUSH IV FLUSH SCH ×2 (09:30→21:10)
[2017-10-28] MEDS: POLYETHYLENE GLYCOL 17 GM PKG PO SCH (09:30)
[2017-10-28] MEDS: BISACODYL 10 MG SUPP RECTAL SCH (09:30)
[2017-10-28] MEDS: LACTULOSE SYRUP 20 GM/30 ML CUP PO SCH ×2 (09:30→21:00)
[2017-10-28] MEDS: DOCUSATE SODIUM 50 MG/SENNA 8.6 MG TAB PO SCH ×2 (09:30→21:00)
[2017-10-28] MEDS: FAMOTIDINE 20 MG TAB PO SCH ×2 (09:30→21:10)
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
[2017-10-28] MEDS ORDERED: oxyCODONE HCL ORAL CONC 5 MG/0.25 ML SYRINGE PO PRN (11:00)
[2017-10-28 13:11] LABS: HEMATOCRIT 37.5 % (39.0-51.0); HEMOGLOBIN 12.9 GM/DL (13.0-17.0); MEAN CELL VOLUME 94.5 FL (80.0-100.0); MEAN CORPUSCULAR HEMOGLOBIN 32.4 PG (27.0-34.0); MEAN CORPUSCULAR HGB CONC 34.3 % (32.0-36.0); MEAN PLATELET VOLUME 10.7 FL (7.0-11.0); PLATELET COUNT 391 TH/MM3 (150-450); RED BLOOD COUNT 3.97 MIL/MM3 (4.50-5.90); RED CELL DISTRIBUTION WIDTH 12.5 % (11.6-17.2); WHITE BLOOD COUNT 22.1 TH/MM3 (4.0-11.0)
[2017-10-28 13:29] LABS: BICARBONATE 28.7 MEQ/L (21.0-32.0); CALCIUM 9.5 MG/DL (8.5-10.1); CREATININE 0.8 MG/DL (0.60-1.30)
--- NOTE | 2017-10-28 16:08 | HHI.IDPN ---
Subjective Subjective Remarks pt is doing OK he is afebrile' CT showed infiltrates and mild ileus WBC improved but still high up to 22 K Antibiotics none Allergies: Coded Allergies: No Known Allergies (Unverified , 10/10/17) Objective . Vital Signs Date Time Temp Pulse Resp B/P (MAP) Pulse Ox O2 Delivery O2 Flow Rate FiO2 10/28/17 14:08 98 Trach Collar 10.00 40 10/28/17 14:00 111 10/28/17 12:00 109 10/28/17 12:00 99.8 109 11 127/89 (102) 100 10/28/17 11:20 100 50 10/28/17 10:00 104 10/28/17 08:29 100 50 10/28/17 08:29 50 10/28/17 08:00 103 10/28/17 08:00 99.3 103 12 128/88 (101) 100 10/28/17 07:00 97 Mechanical Ventilator 50 10/28/17 06:00 110 10/28/17 04:00 98.9 116 12 121/84 (96) 99 10/28/17 04:00 116 10/28/17 03:00 96 Ventilator 50 10/28/17 02:00 117 10/28/17 00:09 98 50 10/28/17 00:00 99.5 110 24 116/87 (97) 99 10/28/17 00:00 111 10/27/17 22:00 106 10/27/17 20:48 99 50 10/27/17 20:00 99.9 111 12 119/85 (96) 98 10/27/17 20:00 111 10/27/17 19:00 98 Mechanical Ventilator 50 10/27/17 16:00 99.6 103 16 120/79 (93) 98 . Laboratory Tests Test 10/27/17 04:48 10/28/17 12:25 White Blood Count 26.0 TH/MM3 22.1 TH/MM3 Red Blood Count 4.18 MIL/MM3 3.97 MIL/MM3 Hemoglobin 13.6 GM/DL 12.9 GM/DL Hematocrit 39.1 % 37.5 % Mean Corpuscular Volume 93.4 FL 94.5 FL Mean Corpuscular Hemoglobin 32.6 PG 32.4 PG Mean Corpuscular Hemoglobin Concent 34.9 % 34.3 % Red Cell Distribution Width 12.4 % 12.5 % Platelet Count 386 TH/MM3 391 TH/MM3 Mean Platelet Volume 9.7 FL 10.7 FL Neutrophils (%) (Auto) 92.0 % Lymphocytes (%) (Auto) 3.2 % Monocytes (%) (Auto) 4.7 % Eosinophils (%) (Auto) 0.0 % Basophils (%) (Auto) 0.1 % Neutrophils # (Auto) 23.9 TH/MM3 Lymphocytes # (Auto) 0.8 TH/MM3 Monocytes # (Auto) 1.2 TH/MM3 Eosinophils # (Auto) 0.0 TH/MM3 Basophils # (Auto) 0.0 TH/MM3 CBC Comment DIFF FINAL Differential Comment Laboratory Tests Test 10/27/17 04:48 10/28/17 12:25 Blood Urea Nitrogen 12 MG/DL 18 MG/DL Creatinine 0.64 MG/DL 0.80 MG/DL Random Glucose 151 MG/DL 135 MG/DL Total Protein 8.1 GM/DL Albumin 3.1 GM/DL Calcium Level 9.3 MG/DL 9.5 MG/DL Alkaline Phosphatase 131 U/L Aspartate Amino Transf (AST/SGOT) 26 U/L Alanine Aminotransferase (ALT/SGPT) 40 U/L Total Bilirubin 0.7 MG/DL Sodium Level 140 MEQ/L 139 MEQ/L Potassium Level 3.7 MEQ/L 3.3 MEQ/L Chloride Level 103 MEQ/L 99 MEQ/L Carbon Dioxide Level 23.4 MEQ/L 28.7 MEQ/L Anion Gap 14 MEQ/L 11 MEQ/L Estimat Glomerular Filtration Rate 135 ML/MIN 105 ML/MIN Imaging Last Impressions Chest X-Ray 10/27/17 0600 Signed Impressions: CONCLUSION: Lungs are grossly clear. Abdomen/Pelvis CT 10/27/17 0000 Signed Impressions: CONCLUSION: 1. Mild ileus without evidence for bowel obstruction. 2. Distal airway disease and minimal subsegmental opacity at the lung bases. D ifferential diagnosis includes postaspiration changes or mild pneumonia. 3. Mild fatty liver. NG coiled in stomach. Abdomen X-Ray 10/27/17 0000 Signed Impressions: CONCLUSION: Enteric tube as above. Lower Extremity Ultrasound 10/19/17 Signed Impressions: CONCLUSION: 1. No evidence of deep venous thrombosis within the lower extremities. Cervical Spine X-Ray 10/18/17 Signed Impressions: CONCLUSION: Anatomic alignment. Cervical Spine MRI 10/16/17 Signed Impressions: CONCLUSION: 1. Interval postsurgical changes status post fusion at the C4-5 level and part ial removal of the spinous processes at 3 through C5 levels. 2. The alignment is now anatomic. 3. Disc bulge at C5-6 greatest in right parasagittal region. Head CT 10/11/172328 Signed Impressions: CONCLUSION: 1. No acute intracranial abnormality. 2. Left parietal scalp injury. Cervical Spine CT 10/11/172328 Signed Impressions: CONCLUSION: Complete perched facets at the C4-C5 level with 8 mm of anterior subluxation of C4 on C5 leading to narrowing of the thecal sac at the superior C5 level. Ther e is fracturing of the posterior aspect of the superior facet at the right C4 l evel. This information was relayed by telephone to Dr. Johnson at 1:[address] 10/11/17 Signed Impressions: CONCLUSION: Negative thoracic spine CT examination. Neck CTA 10/11/17 Signed Impressions: CONCLUSION: Normal CTA of the neck. The vertebral arteries appear normal. Physical Exam CONSTITUTIONAL/GENERAL: This is an adequately nourished patient, in no apparent distress. TUBES/LINES/DRAINS: SKIN: No jaundice, rashes, or lesions. Ecchymoses on upper extremities. No wounds seen anteriorly. Skin temperature appropriate. Not diaphoretic. HEAD: HALO pin sites appear clean NECK: HALO in place Trach in place - site looks clean, mild serosang d/c CARDIOVASCULAR: Regular rate and rhythm without murmurs, gallops, or rubs. No JVD. Peripheral pulses symmetric. RESPIRATORY/CHEST: Symmetric, unlabored respirations. Clear to auscultation. Breath sounds equal bilaterally. No wheezes, rales, or rhonchi. GASTROINTESTINAL: Abdomen soft, non-tender, nondistended. No hepato-splenomegaly , or palpable masses. No guarding. Bowel sounds present. GENITOURINARY: Without palpable bladder distension. MUSCULOSKELETAL: Extremities without clubbing, cyanosis, or edema. No joint tenderness or effusion noted. No calf tenderness. No mottling or clubbing. NEUROLOGICAL: Awake and alert. Motor and sensory grossly within normal limits. Follows commands. Mouths wourds. Moves all extremities. PSYCHIATRIC: No obvious anxiety/depression. no apparent hallucinations or other psychotic thought process. Assessment & Plan Remarks Traumatic Cervical C4-5 fracture subluxation - s/p cervical C4-5 microdiscectomy with interbody fusion; anterior C4-5 cervical plate placement; C4-5 interbody cage placement; microsurgical technique by Dr Ferreira on 10/18 Leukocytosis ? reactive Ileus: resolved vomiting CT showed s/s pulmonary changes ? early post aspiration PNA COlonised sputum, doubt PNA zosyn chk sputum clx Brittanie Gomez MD Oct 28, 2017 16:08
[2017-10-28] MEDS ORDERED: PIPERACIL-TAZO 3.375 GM PREMIX 50 ML IV SCH (16:15)
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
[2017-10-28] MEDS: PIPERACIL-TAZO 3.375 GM PREMIX 50 ML IV SCH ×2 (17:57→21:11)
[2017-10-28] MEDS: ERYTHROMYCIN ETHYLSUCCINATE 400 MG TAB PO SCH ×2 (17:57→21:10)
[2017-10-28] MEDS: PROCHLORPERAZINE INJ 10 MG/2 ML VIAL IV PRN (19:57)
[2017-10-28] MEDS: QUEtiapine FUMARATE 25 MG TAB PO SCH (21:10)
[2017-10-29] VITALS (11 sets, daily range): BP systolic 118–138; BP diastolic 74–93; PULSE 93–103; RESP 20–34; TEMP 98.7–101.4; O2SAT 95–100
[2017-10-29] MEDS: DEXTROSE 5% IN WATE 1000ML INJ 1,000 ML IV SCH ×2 (00:30→08:36)
[2017-10-29] MEDS: CHLORHEXIDINE GLUCONATE 2 % 1 PACK (2 CLOTHS) TOP SCH (01:19)
[2017-10-29] MEDS: METOCLOPRAMIDE HCL 10 MG/2 ML VIAL IV PUSH SCH ×3 (02:01→17:58)
[2017-10-29] MEDS: HALOPERIDOL LACTATE 5 MG/ML AMP IV PUSH PRN ×2 (03:17→21:49)
[2017-10-29] MEDS: ACETAMINOPHEN 1000 MG/100 ML 100 ML IV PRN ×2 (03:17→21:49)
--- NOTE | 2017-10-29 03:41 | RADRPT ---
EXAM DATE: 10/29/2017 3:38 AM EDT AGE/SEX: 47 years / Male INDICATIONS: Trauma CLINICAL DATA: This is the patient's subsequent encounter. Patient reports that signs and symptoms h ave been present for 1 week and indicates a pain score of Nonresponsive. MEDICAL/SURGICAL HISTORY: . Cervical fracture . Halo placement [place] [facility] [place]. . FINDINGS: Single AP view the chest. Sternal metallic hardware is in place of the chest. Lungs are grossly clear . Tracheostomy tube in place. Cardiomediastinal silhouette within normal limits. No evidence of pleur al effusion or pneumothorax. CONCLUSION: No acute cardiopulmonary disease identified. Electronically signed by: George Ly MD 10/29/2017 3:40 AM EDT
[2017-10-29] MEDS: PIPERACIL-TAZO 3.375 GM PREMIX 50 ML IV SCH ×4 (03:42→21:17)
[2017-10-29 04:29] LABS: AUTOMATED NEUTROPHIL # 11.8 TH/MM3 (1.8-7.7); BASOPHIL % 0.3 % (0.0-2.0); EOSINOPHIL % 0.3 % (0.0-4.0); HEMATOCRIT 34.9 % (39.0-51.0); HEMOGLOBIN 11.8 GM/DL (13.0-17.0); LYMPH % 6.6 % (9.0-44.0); LYMPHOCYTE # 0.9 TH/MM3 (1.0-4.8); MEAN CELL VOLUME 93.9 FL (80.0-100.0); MEAN CORPUSCULAR HEMOGLOBIN 31.8 PG (27.0-34.0); MEAN CORPUSCULAR HGB CONC 33.9 % (32.0-36.0); MEAN PLATELET VOLUME 10.2 FL (7.0-11.0); MONO % 10.9 % (0.0-8.0); MONOCYTE # 1.6 TH/MM3 (0-0.9); NEUT % 81.9 % (16.0-70.0); PLATELET COUNT 326 TH/MM3 (150-450); RED BLOOD COUNT 3.72 MIL/MM3 (4.50-5.90); RED CELL DISTRIBUTION WIDTH 12.5 % (11.6-17.2); WHITE BLOOD COUNT 14.4 TH/MM3 (4.0-11.0)
[2017-10-29 04:43] LABS: ALBUMIN 2.8 GM/DL (3.4-5.0); AST (GOT) 21 U/L (15-37); BICARBONATE 32.4 MEQ/L (21.0-32.0); BLOOD UREA NITROGEN 27 MG/DL (7-18); CHLORIDE 100 MEQ/L (98-107); CREATININE 1.15 MG/DL (0.60-1.30); GLOMERULAR FILTRATION RATE 69 ML/MIN (>89); GLUCOSE,RANDOM 130 MG/DL (74-106); SODIUM (NA) 141 MEQ/L (136-145)
[2017-10-29 04:44] LABS: ALT (GPT) 37 U/L (12-78)
[2017-10-29 04:46] LABS: ALKALINE PHOSPHATASE 120 U/L (45-117); TOTAL BILIRUBIN ADULT 0.7 MG/DL (0.2-1.0); TOTAL PROTEIN 7.5 GM/DL (6.4-8.2)
[2017-10-29] MEDS: FREE WATER G-TUBE SCH ×3 (06:00→20:45)
[2017-10-29] MEDS: PROPRANOLOL HCL 20 MG TAB PO SCH ×3 (06:31→20:48)
[2017-10-29] MEDS: ARTIFICIAL TEARS OPTH SOLN 15 ML BTL EACH EYE SCH ×3 (06:31→20:50)
[2017-10-29] MEDS: ERYTHROMYCIN ETHYLSUCCINATE 400 MG TAB PO SCH ×3 (06:31→20:48)
[2017-10-29] MEDS: ENOXAPARIN SODIUM 30 MG/0.3 ML SYRINGE SQ SCH ×2 (06:33→17:58)
[2017-10-29] MEDS: SODIUM CHLORIDE 0.9% FLUSH 10 ML FLUSH IV FLUSH SCH ×2 (09:59→20:49)
[2017-10-29] MEDS: QUEtiapine FUMARATE 100 MG TAB PO SCH ×2 (09:59→17:00)
[2017-10-29] MEDS: DOCUSATE SODIUM 50 MG/SENNA 8.6 MG TAB PO SCH ×2 (10:00→20:45)
[2017-10-29] MEDS: BISACODYL 10 MG SUPP RECTAL SCH (10:00)
[2017-10-29] MEDS: FAMOTIDINE 20 MG TAB PO SCH ×2 (10:00→20:48)
[2017-10-29] MEDS: POLYETHYLENE GLYCOL 17 GM PKG PO SCH (10:01)
[2017-10-29] MEDS: MAGNESIUM HYDROXIDE SUSP 30 ML CUP PO SCH ×2 (10:01→20:44)
[2017-10-29] MEDS: LACTULOSE SYRUP 20 GM/30 ML CUP PO SCH ×2 (10:01→20:44)
[2017-10-29] MEDS: POTASSIUM CHLOR 20 MEQ PREMIX 100 ML IV PRN (10:09)
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
[2017-10-29] MEDS ORDERED: QUET1TAB8 PO (10:27)
[2017-10-29] MEDS ORDERED: ENOX30P SQ (10:27)
[2017-10-29] MEDS ORDERED: ACET325T15 PO (10:27)
[2017-10-29] MEDS ORDERED: ONDA4TAB7 PO (10:27)
[2017-10-29] MEDS ORDERED: oxyCODONE LIQ PO (10:27)
[2017-10-29] MEDS ORDERED: FAMO20TA2 PO (10:27)
[2017-10-29] MEDS ORDERED: METOCLOPRAMIDE PO (10:27)
[2017-10-29] MEDS ORDERED: Albuterol Neb NEB (10:27)
[2017-10-29] MEDS ORDERED: CLON.1 PO (10:27)
[2017-10-29] MEDS ORDERED: POLY17S PO (10:27)
[2017-10-29] MEDS ORDERED: Lactulose Liq PO (10:27)
[2017-10-29] MEDS ORDERED: MAGN30S PO (10:27)
[2017-10-29] MEDS ORDERED: PERI PO (10:27)
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
[2017-10-29] MEDS: QUEtiapine FUMARATE 25 MG TAB PO SCH (20:48)
[2017-10-30] VITALS (9 sets, daily range): BP systolic 117–138; BP diastolic 78–95; PULSE 89–112; RESP 14–29; TEMP 98.4–100.3; O2SAT 94–99
[2017-10-30] MEDS: METOCLOPRAMIDE HCL 10 MG/2 ML VIAL IV PUSH SCH ×3 (00:12→16:42)
[2017-10-30] MEDS: QUEtiapine FUMARATE 100 MG TAB PO SCH ×4 (00:12→23:58)
[2017-10-30] MEDS: CHLORHEXIDINE GLUCONATE 2 % 1 PACK (2 CLOTHS) TOP SCH (02:18)
[2017-10-30 03:33] LABS: AUTOMATED NEUTROPHIL # 7.8 TH/MM3 (1.8-7.7); BASOPHIL % 0.3 % (0.0-2.0); EOSINOPHIL % 0.4 % (0.0-4.0); HEMATOCRIT 32.9 % (39.0-51.0); HEMOGLOBIN 11.9 GM/DL (13.0-17.0); LYMPH % 12.8 % (9.0-44.0); LYMPHOCYTE # 1.3 TH/MM3 (1.0-4.8); MEAN CORPUSCULAR HEMOGLOBIN 34.4 PG (27.0-34.0); MEAN PLATELET VOLUME 10.6 FL (7.0-11.0); MONO % 12.5 % (0.0-8.0); MONOCYTE # 1.3 TH/MM3 (0-0.9); PLATELET COUNT 325 TH/MM3 (150-450); RED BLOOD COUNT 3.47 MIL/MM3 (4.50-5.90); RED CELL DISTRIBUTION WIDTH 12.5 % (11.6-17.2); WHITE BLOOD COUNT 10.5 TH/MM3 (4.0-11.0)
[2017-10-30 03:38] LABS: MEAN CORPUSCULAR HGB CONC 36.2 % (32.0-36.0)
[2017-10-30 03:45] LABS: ALBUMIN 2.8 GM/DL (3.4-5.0); ALT (GPT) 44 U/L (12-78); AST (GOT) 23 U/L (15-37); BICARBONATE 29.1 MEQ/L (21.0-32.0); BLOOD UREA NITROGEN 25 MG/DL (7-18); CHLORIDE 101 MEQ/L (98-107); CREATININE 0.88 MG/DL (0.60-1.30); GLOMERULAR FILTRATION RATE 94 ML/MIN (>89); GLUCOSE,RANDOM 114 MG/DL (74-106); SODIUM (NA) 140 MEQ/L (136-145)
[2017-10-30 03:48] LABS: ALKALINE PHOSPHATASE 120 U/L (45-117); TOTAL BILIRUBIN ADULT 0.7 MG/DL (0.2-1.0); TOTAL PROTEIN 7.7 GM/DL (6.4-8.2)
[2017-10-30] MEDS: ERYTHROMYCIN ETHYLSUCCINATE 400 MG TAB PO SCH (05:18)
[2017-10-30] MEDS: PROPRANOLOL HCL 20 MG TAB PO SCH ×3 (05:18→21:01)
[2017-10-30] MEDS: FREE WATER G-TUBE SCH ×3 (05:18→20:51)
[2017-10-30] MEDS: ARTIFICIAL TEARS OPTH SOLN 15 ML BTL EACH EYE SCH ×3 (05:18→21:01)
[2017-10-30] MEDS: PIPERACIL-TAZO 3.375 GM PREMIX 50 ML IV SCH ×4 (05:18→22:06)
[2017-10-30] MEDS: ENOXAPARIN SODIUM 30 MG/0.3 ML SYRINGE SQ SCH ×2 (05:18→16:42)
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
[2017-10-30] MEDS: BISACODYL 10 MG SUPP RECTAL SCH (09:00)
[2017-10-30] MEDS: SODIUM CHLORIDE 0.9% FLUSH 10 ML FLUSH IV FLUSH SCH ×2 (09:00→21:01)
[2017-10-30] MEDS: POLYETHYLENE GLYCOL 17 GM PKG PO SCH (09:00)
[2017-10-30] MEDS: MAGNESIUM HYDROXIDE SUSP 30 ML CUP PO SCH ×2 (09:43→21:01)
[2017-10-30] MEDS: LACTULOSE SYRUP 20 GM/30 ML CUP PO SCH ×2 (09:43→21:01)
[2017-10-30] MEDS: DOCUSATE SODIUM 50 MG/SENNA 8.6 MG TAB PO SCH ×2 (09:44→21:01)
[2017-10-30] MEDS: FAMOTIDINE 20 MG TAB PO SCH ×2 (09:44→21:01)
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
[2017-10-30] MEDS ORDERED: POTASSIUM CHLORIDE 25 MEQ EFFERVESCENT TAB PO ONE ×2 (11:30→16:00)
[2017-10-30] MEDS: DEXTROSE 5% IN WATE 1000ML INJ 1,000 ML IV SCH (16:47)
--- NOTE | 2017-10-30 17:39 | HHI.IDPN ---
Subjective Subjective Remarks febrile up to 100.3 coughing + large amou t of resp secretions from trach CT showed infiltrates and mild ileus WBC improved Antibiotics zosyn Allergies: Coded Allergies: No Known Allergies (Unverified , 10/10/17) Objective . Vital Signs Date Time Temp Pulse Resp B/P (MAP) Pulse Ox O2 Delivery O2 Flow Rate FiO2 10/30/17 16:00 99.3 100 24 117/87 (97) 94 10/30/17 16:00 100 10/30/17 12:00 100.3 112 14 134/90 (105) 95 10/30/17 12:00 112 10/30/17 09:38 97 Trach Collar 8.00 40 10/30/17 08:00 110 10/30/17 08:00 98.4 110 25 133/95 (108) 96 10/30/17 07:00 96 Trach Collar 10.00 40 10/30/17 04:00 102 10/30/17 04:00 99.4 102 24 138/88 (105) 99 10/30/17 00:00 103 10/30/17 00:00 99.5 103 22 128/78 (95) 98 10/29/17 21:32 98 Trach Collar 8.00 10/29/17 20:00 100.4 103 22 127/86 (100) 98 10/29/17 20:00 103 10/29/17 19:00 98 Trach Collar 10.00 40 10/29/17 18:00 99 . Laboratory Tests Test 10/29/17 04:09 10/30/17 03:08 White Blood Count 14.4 TH/MM3 10.5 TH/MM3 Red Blood Count 3.72 MIL/MM3 3.47 MIL/MM3 Hemoglobin 11.8 GM/DL 11.9 GM/DL Hematocrit 34.9 % 32.9 % Mean Corpuscular Volume 93.9 FL 95.0 FL Mean Corpuscular Hemoglobin 31.8 PG 34.4 PG Mean Corpuscular Hemoglobin Concent 33.9 % 36.2 % Red Cell Distribution Width 12.5 % 12.5 % Platelet Count 326 TH/MM3 325 TH/MM3 Mean Platelet Volume 10.2 FL 10.6 FL Neutrophils (%) (Auto) 81.9 % 74.0 % Lymphocytes (%) (Auto) 6.6 % 12.8 % Monocytes (%) (Auto) 10.9 % 12.5 % Eosinophils (%) (Auto) 0.3 % 0.4 % Basophils (%) (Auto) 0.3 % 0.3 % Neutrophils # (Auto) 11.8 TH/MM3 7.8 TH/MM3 Lymphocytes # (Auto) 0.9 TH/MM3 1.3 TH/MM3 Monocytes # (Auto) 1.6 TH/MM3 1.3 TH/MM3 Eosinophils # (Auto) 0.0 TH/MM3 0.0 TH/MM3 Basophils # (Auto) 0.0 TH/MM3 0.0 TH/MM3 CBC Comment DIFF FINAL AUTO DIFF Differential Comment AUTO DIFF CONFIRMED Platelet Estimate NORMAL Platelet Morphology Comment NORMAL Laboratory Tests Test 10/29/17 04:09 10/30/17 03:08 Blood Urea Nitrogen 27 MG/DL 25 MG/DL Creatinine 1.15 MG/DL 0.88 MG/DL Random Glucose 130 MG/DL 114 MG/DL Total Protein 7.5 GM/DL 7.7 GM/DL Albumin 2.8 GM/DL 2.8 GM/DL Calcium Level 9.0 MG/DL 9.0 MG/DL Alkaline Phosphatase 120 U/L 120 U/L Aspartate Amino Transf (AST/SGOT) 21 U/L 23 U/L Alanine Aminotransferase (ALT/SGPT) 37 U/L 44 U/L Total Bilirubin 0.7 MG/DL 0.7 MG/DL Sodium Level 141 MEQ/L 140 MEQ/L Potassium Level 3.3 MEQ/L 3.0 MEQ/L Chloride Level 100 MEQ/L 101 MEQ/L Carbon Dioxide Level 32.4 MEQ/L 29.1 MEQ/L Anion Gap 9 MEQ/L 10 MEQ/L Estimat Glomerular Filtration Rate 69 ML/MIN 94 ML/MIN Microbiology Date/Time Source Procedure Growth Status 10/28/17 23:00 Sputum Endotracheal Gram Stain - Final Resulted 10/28/17 23:00 Sputum Culture - Preliminary S. Aureus Mrsa Resulted Imaging Last Impressions Chest X-Ray 10/29/17 0600 Signed Impressions: CONCLUSION: No acute cardiopulmonary disease identified. Abdomen/Pelvis CT 10/27/17 0000 Signed Impressions: CONCLUSION: 1. Mild ileus without evidence for bowel obstruction. 2. Distal airway disease and minimal subsegmental opacity at the lung bases. D ifferential diagnosis includes postaspiration changes or mild pneumonia. 3. Mild fatty liver. NG coiled in stomach. Abdomen X-Ray 10/27/17 Signed Impressions: CONCLUSION: Enteric tube as above. Lower Extremity Ultrasound 10/19/17 Signed Impressions: CONCLUSION: 1. No evidence of deep venous thrombosis within the lower extremities. Cervical Spine X-Ray 10/18/17 Signed Impressions: CONCLUSION: Anatomic alignment. Cervical Spine MRI 10/16/17 Signed Impressions: CONCLUSION: 1. Interval postsurgical changes status post fusion at the C4-5 level and part ial removal of the spinous processes at 3 through C5 levels. 2. The alignment is now anatomic. 3. Disc bulge at C5-6 greatest in right parasagittal region. Head CT 10/11/172328 Signed Impressions: CONCLUSION: 1. No acute intracranial abnormality. 2. Left parietal scalp injury. Cervical Spine CT 10/11/172328 Signed Impressions: CONCLUSION: Complete perched facets at the C4-C5 level with 8 mm of anterior subluxation of C4 on C5 leading to narrowing of the thecal sac at the superior C5 level. Ther e is fracturing of the posterior aspect of the superior facet at the right C4 l evel. This information was relayed by telephone to Dr. Johnson at 1:[address] 10/11/17 Signed Impressions: CONCLUSION: Negative thoracic spine CT examination. Neck CTA 10/11/17 Signed Impressions: CONCLUSION: Normal CTA of the neck. The vertebral arteries appear normal. Physical Exam CONSTITUTIONAL/GENERAL: This is an adequately nourished patient, in no apparent distress. TUBES/LINES/DRAINS: SKIN: No jaundice, rashes, or lesions. Ecchymoses on upper extremities. No wounds seen anteriorly. Skin temperature appropriate. Not diaphoretic. HEAD: HALO pin sites appear clean NECK: HALO in place Trach in place - extensive purulent secreitons CARDIOVASCULAR: Regular rate and rhythm without murmurs, gallops, or rubs. No JVD. Peripheral pulses symmetric. RESPIRATORY/CHEST: Symmetric, unlabored respirations. Diffuse rhonchi to auscultation. Breath sounds equal bilaterally. GASTROINTESTINAL: Abdomen soft, non-tender, nondistended. No hepato-splenomegaly , or palpable masses. No guarding. Bowel sounds present. GENITOURINARY: Without palpable bladder distension. MUSCULOSKELETAL: Extremities without clubbing, cyanosis, or edema. No joint tenderness or effusion noted. No calf tenderness. No mottling or clubbing. NEUROLOGICAL: Awake and alert. Motor and sensory grossly within normal limits. Follows commands. Mouths wourds. Moves all extremities. PSYCHIATRIC: No obvious anxiety/depression. no apparent hallucinations or other psychotic thought process. Assessment & Plan Remarks Traumatic Cervical C4-5 fracture subluxation - s/p cervical C4-5 microdiscectomy with interbody fusion; anterior C4-5 cervical plate placement; C4-5 interbody cage placement; microsurgical technique by Dr Ferreira on 10/18 Leukocytosis ? reactive Ileus: resolved vomiting Lilely MRSA PNA cont zosyn add IV zyvox fu sputum clx untill final dw Brittanie Baron MD Oct 30, 2017 17:39
[2017-10-30] MEDS: ONDANSETRON ODT 4 MG TAB PO PRN (18:01)
[2017-10-30] MEDS: LINEZOLID 600 MG PREMIX 300 ML IV SCH (18:01)
[2017-10-30] MEDS: QUEtiapine FUMARATE 25 MG TAB PO SCH (21:01)
[2017-10-31] VITALS: BP 131/88; PULSE 98; RESP 19; TEMP 99.2; O2SAT 95
[2017-10-31] MEDS: CHLORHEXIDINE GLUCONATE 2 % 1 PACK (2 CLOTHS) TOP SCH (00:46)
[2017-10-31] MEDS: METOCLOPRAMIDE HCL 10 MG/2 ML VIAL IV PUSH SCH ×2 (01:26→10:18)
[2017-10-31 02:42] VITALS: O2SAT 95
[2017-10-31 04:00] VITALS: BP 131/88; PULSE 89; RESP 23; TEMP 99.1; O2SAT 92
[2017-10-31 04:49] LABS: AUTOMATED NEUTROPHIL # 7.3 TH/MM3 (1.8-7.7); BASOPHIL % 0.3 % (0.0-2.0); EOSINOPHIL # 0.1 TH/MM3 (0-0.4); EOSINOPHIL % 0.7 % (0.0-4.0); HEMATOCRIT 36.1 % (39.0-51.0); HEMOGLOBIN 12.3 GM/DL (13.0-17.0); LYMPHOCYTE # 1.3 TH/MM3 (1.0-4.8); MEAN CELL VOLUME 94.7 FL (80.0-100.0); MEAN CORPUSCULAR HEMOGLOBIN 32.3 PG (27.0-34.0); MEAN CORPUSCULAR HGB CONC 34.1 % (32.0-36.0); MEAN PLATELET VOLUME 10.3 FL (7.0-11.0); MONO % 14.2 % (0.0-8.0); MONOCYTE # 1.4 TH/MM3 (0-0.9); NEUT % 71.8 % (16.0-70.0); PLATELET COUNT 357 TH/MM3 (150-450); RED BLOOD COUNT 3.81 MIL/MM3 (4.50-5.90); RED CELL DISTRIBUTION WIDTH 12.6 % (11.6-17.2); WHITE BLOOD COUNT 10.1 TH/MM3 (4.0-11.0)
[2017-10-31] MEDS: ARTIFICIAL TEARS OPTH SOLN 15 ML BTL EACH EYE SCH ×2 (05:13→14:00)
[2017-10-31] MEDS: FREE WATER G-TUBE SCH ×2 (05:13→14:00)
[2017-10-31] MEDS: PROPRANOLOL HCL 20 MG TAB PO SCH (05:15)
[2017-10-31] MEDS: PIPERACIL-TAZO 3.375 GM PREMIX 50 ML IV SCH ×2 (05:17→11:23)
[2017-10-31] MEDS: LINEZOLID 600 MG PREMIX 300 ML IV SCH (05:17)
[2017-10-31] MEDS: ENOXAPARIN SODIUM 30 MG/0.3 ML SYRINGE SQ SCH (05:17)
[2017-10-31 05:25] LABS: ALBUMIN 2.6 GM/DL (3.4-5.0); AST (GOT) 29 U/L (15-37); BICARBONATE 27.2 MEQ/L (21.0-32.0); BLOOD UREA NITROGEN 18 MG/DL (7-18); CHLORIDE 100 MEQ/L (98-107); CREATININE 0.69 MG/DL (0.60-1.30); GLOMERULAR FILTRATION RATE 124 ML/MIN (>89); GLUCOSE,RANDOM 113 MG/DL (74-106); SODIUM (NA) 139 MEQ/L (136-145)
[2017-10-31 05:27] LABS: ALT (GPT) 56 U/L (12-78)
[2017-10-31 05:29] LABS: ALKALINE PHOSPHATASE 117 U/L (45-117); TOTAL BILIRUBIN ADULT 0.5 MG/DL (0.2-1.0); TOTAL PROTEIN 7.4 GM/DL (6.4-8.2)
[2017-10-31] MEDS: POTASSIUM CHLOR 20 MEQ PREMIX 100 ML IV PRN (07:03)
[2017-10-31 08:00] VITALS: BP 121/81; PULSE 79; RESP 29; TEMP 98; O2SAT 100
[2017-10-31] MEDS ORDERED: PROP20TA3 PO (08:15)
[2017-10-31] MEDS ORDERED: PILL SPLITTER OTHER ONE (08:30)
[2017-10-31] MEDS: POLYETHYLENE GLYCOL 17 GM PKG PO SCH (09:00)
[2017-10-31] MEDS: MAGNESIUM HYDROXIDE SUSP 30 ML CUP PO SCH (09:00)
[2017-10-31] MEDS: SODIUM CHLORIDE 0.9% FLUSH 10 ML FLUSH IV FLUSH SCH (09:00)
[2017-10-31] MEDS: LACTULOSE SYRUP 20 GM/30 ML CUP PO SCH (09:00)
[2017-10-31] MEDS ORDERED: POTASSIUM CHLORIDE 25 MEQ EFFERVESCENT TAB NG SCH (09:00)
[2017-10-31] MEDS: BISACODYL 10 MG SUPP RECTAL SCH (09:00)
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
[2017-10-31] MEDS: QUEtiapine FUMARATE 100 MG TAB PO SCH (10:14)
[2017-10-31] MEDS: FAMOTIDINE 20 MG TAB PO SCH (10:15)
[2017-10-31] MEDS: DOCUSATE SODIUM 50 MG/SENNA 8.6 MG TAB PO SCH (10:15)
[2017-10-31 12:00] VITALS: BP 123/86; PULSE 83; RESP 29; TEMP 97.9; O2SAT 96
[2017-10-31] MEDS: DEXTROSE 5% IN WATE 1000ML INJ 1,000 ML IV SCH (12:30)
--- NOTE | 2017-10-31 13:55 | HHI.IDPN ---
Subjective Subjective Remarks MS improved PT was hallucinating yday mno fever WBC down On trach collar 40% Antibiotics zosyn zyvox Allergies: Coded Allergies: No Known Allergies (Unverified , 10/10/17) Objective . Vital Signs Date Time Temp Pulse Resp B/P (MAP) Pulse Ox O2 Delivery O2 Flow Rate FiO2 10/31/17 12:00 97.9 83 29 123/86 (98) 96 10/31/17 08:00 98.0 79 29 121/81 (94) 100 10/31/17 07:00 100 Trach Collar 10.00 40 10/31/17 04:00 89 10/31/17 04:00 99.1 89 23 131/88 (102) 92 10/31/17 02:42 95 T-piece 10.00 40 10/31/17 00:00 99.2 98 19 131/88 (102) 95 10/31/17 00:00 98 10/30/17 23:31 97 T-piece 10.00 40 10/30/17 22:00 T-Piece 10/30/17 21:49 95 Trach Collar 10.00 40 10/30/17 20:00 99.2 89 29 131/80 (97) 96 10/30/17 20:00 89 10/30/17 19:00 96 Trach Collar 10.00 40 10/30/17 16:00 99.3 100 24 117/87 (97) 94 10/30/17 16:00 100 . Laboratory Tests Test 10/30/17 03:08 10/31/17 04:17 White Blood Count 10.5 TH/MM3 10.1 TH/MM3 Red Blood Count 3.47 MIL/MM3 3.81 MIL/MM3 Hemoglobin 11.9 GM/DL 12.3 GM/DL Hematocrit 32.9 % 36.1 % Mean Corpuscular Volume 95.0 FL 94.7 FL Mean Corpuscular Hemoglobin 34.4 PG 32.3 PG Mean Corpuscular Hemoglobin Concent 36.2 % 34.1 % Red Cell Distribution Width 12.5 % 12.6 % Platelet Count 325 TH/MM3 357 TH/MM3 Mean Platelet Volume 10.6 FL 10.3 FL Neutrophils (%) (Auto) 74.0 % 71.8 % Lymphocytes (%) (Auto) 12.8 % 13.0 % Monocytes (%) (Auto) 12.5 % 14.2 % Eosinophils (%) (Auto) 0.4 % 0.7 % Basophils (%) (Auto) 0.3 % 0.3 % Neutrophils # (Auto) 7.8 TH/MM3 7.3 TH/MM3 Lymphocytes # (Auto) 1.3 TH/MM3 1.3 TH/MM3 Monocytes # (Auto) 1.3 TH/MM3 1.4 TH/MM3 Eosinophils # (Auto) 0.0 TH/MM3 0.1 TH/MM3 Basophils # (Auto) 0.0 TH/MM3 0.0 TH/MM3 CBC Comment AUTO DIFF DIFF FINAL Differential Comment AUTO DIFF CONFIRMED Platelet Estimate NORMAL Platelet Morphology Comment NORMAL Laboratory Tests Test 10/30/17 03:08 10/31/17 04:17 Blood Urea Nitrogen 25 MG/DL 18 MG/DL Creatinine 0.88 MG/DL 0.69 MG/DL Random Glucose 114 MG/DL 113 MG/DL Total Protein 7.7 GM/DL 7.4 GM/DL Albumin 2.8 GM/DL 2.6 GM/DL Calcium Level 9.0 MG/DL 9.0 MG/DL Alkaline Phosphatase 120 U/L 117 U/L Aspartate Amino Transf (AST/SGOT) 23 U/L 29 U/L Alanine Aminotransferase (ALT/SGPT) 44 U/L 56 U/L Total Bilirubin 0.7 MG/DL 0.5 MG/DL Sodium Level 140 MEQ/L 139 MEQ/L Potassium Level 3.0 MEQ/L 3.1 MEQ/L Chloride Level 101 MEQ/L 100 MEQ/L Carbon Dioxide Level 29.1 MEQ/L 27.2 MEQ/L Anion Gap 10 MEQ/L 12 MEQ/L Estimat Glomerular Filtration Rate 94 ML/MIN 124 ML/MIN Magnesium Level 2.5 MG/DL Microbiology Date/Time Source Procedure Growth Status 10/28/17 23:00 Sputum Endotracheal Gram Stain - Final Complete 10/28/17 23:00 Sputum Culture - Final S. Aureus Mrsa Complete Imaging Last Impressions Chest X-Ray 10/29/17 0600 Signed Impressions: CONCLUSION: No acute cardiopulmonary disease identified. Abdomen/Pelvis CT 10/27/17 0000 Signed Impressions: CONCLUSION: 1. Mild ileus without evidence for bowel obstruction. 2. Distal airway disease and minimal subsegmental opacity at the lung bases. D ifferential diagnosis includes postaspiration changes or mild pneumonia. 3. Mild fatty liver. NG coiled in stomach. Abdomen X-Ray 10/27/17 Signed Impressions: CONCLUSION: Enteric tube as above. Lower Extremity Ultrasound 10/19/17 Signed Impressions: CONCLUSION: 1. No evidence of deep venous thrombosis within the lower extremities. Cervical Spine X-Ray 10/18/17 Signed Impressions: CONCLUSION: Anatomic alignment. Cervical Spine MRI 10/16/17 Signed Impressions: CONCLUSION: 1. Interval postsurgical changes status post fusion at the C4-5 level and part ial removal of the spinous processes at 3 through C5 levels. 2. The alignment is now anatomic. 3. Disc bulge at C5-6 greatest in right parasagittal region. Head CT 10/11/172328 Signed Impressions: CONCLUSION: 1. No acute intracranial abnormality. 2. Left parietal scalp injury. Cervical Spine CT 10/11/172328 Signed Impressions: CONCLUSION: Complete perched facets at the C4-C5 level with 8 mm of anterior subluxation of C4 on C5 leading to narrowing of the thecal sac at the superior C5 level. Ther e is fracturing of the posterior aspect of the superior facet at the right C4 l evel. This information was relayed by telephone to Dr. Johnson at 1:[address] 10/11/17 Signed Impressions: CONCLUSION: Negative thoracic spine CT examination. Neck CTA 10/11/17 Signed Impressions: CONCLUSION: Normal CTA of the neck. The vertebral arteries appear normal. Physical Exam CONSTITUTIONAL/GENERAL: This is an adequately nourished patient, in no apparent distress. TUBES/LINES/DRAINS: SKIN: No jaundice, rashes, or lesions. Ecchymoses on upper extremities. No wounds seen anteriorly. Skin temperature appropriate. Not diaphoretic. HEAD: HALO pin sites appear clean NECK: HALO in place Trach in place - extensive purulent secreitons CARDIOVASCULAR: Regular rate and rhythm without murmurs, gallops, or rubs. No JVD. Peripheral pulses symmetric. RESPIRATORY/CHEST: Symmetric, unlabored respirations. Diffuse rhonchi to auscultation. Breath sounds equal bilaterally. GASTROINTESTINAL: Abdomen soft, non-tender, nondistended. No hepato-splenomegaly , or palpable masses. No guarding. Bowel sounds present. GENITOURINARY: Without palpable bladder distension. MUSCULOSKELETAL: Extremities without clubbing, cyanosis, or edema. No joint tenderness or effusion noted. No calf tenderness. No mottling or clubbing. NEUROLOGICAL: asleep Alert oriented x 3 whwne awake - per [employer]ER: No obvious anxiety/depression. no apparent hallucinations or other psychotic thought process. Assessment & Plan Remarks Traumatic Cervical C4-5 fracture subluxation - s/p cervical C4-5 microdiscectomy with interbody fusion; anterior C4-5 cervical plate placement; C4-5 interbody cage placement; microsurgical technique by Dr Ferreira on 10/18 Leukocytosis ?-improved Ileus: resolved vomiting MRSA PNA dc zosyn change zyvox to po and cont x 7-10 days (longer if needed) repeat CXR in few days OK to Xfer to Brittanie Balderrama MD Oct 31, 2017 13:55
[2017-10-31] MEDS ORDERED: LINEZOLID 600 MG TAB PO SCH (14:00)
[2017-10-31] MEDS ORDERED: PROPRANOLOL HCL 10 MG TAB PO SCH (14:00)
[2017-10-31] MEDS ORDERED: ZYVO600T PO (14:45)
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
== END 2017-10-31 15:42 | DRG 3 ==
LOC: EDBD → NEPC 22:48 → NEDA 10-11 01:22 → N03B 10-11 03:10 → N03A 10-27 05:52 → N03B 10-27 09:44
PROVIDERS: ADMIT Surgery Trauma Surgery; ATTEND Surgery Trauma Surgery
PROC: 0HQ0XZZ Repair Scalp Skin, External Approach (ICD-10-PCS; 2017-10-11)
PROC: 2W60X0Z Traction of Head using Traction Apparatus (ICD-10-PCS; 2017-10-11)
PROC: 5A1955Z Respiratory Ventilation, Greater than 96 Consecutive Hours (ICD-10-PCS; 2017-10-15)
PROC: 0PS304Z Reposition Cervical Vertebra with Internal Fixation Device, Open Approach (ICD-10-PCS; 2017-10-15)
PROC: 0RG1071 Fusion of Cervical Vertebral Joint with Autologous Tissue Substitute, Posterior Approach, Posterior Column, Open Approach (ICD-10-PCS; principal; 2017-10-15 12:05)
PROC: 0RG10A0 Fusion of Cervical Vertebral Joint with Interbody Fusion Device, Anterior Approach, Anterior Column, Open Approach (ICD-10-PCS; 2017-10-18)
PROC: 0RT30ZZ Resection of Cervical Vertebral Disc, Open Approach (ICD-10-PCS; 2017-10-18)
PROC: 0B113F4 Bypass Trachea to Cutaneous with Tracheostomy Device, Percutaneous Approach (ICD-10-PCS; 2017-10-24)
PROC: 0B978ZZ Drainage of Left Main Bronchus, Via Natural or Artificial Opening Endoscopic (ICD-10-PCS; 2017-10-24)
PROC: 0B938ZZ Drainage of Right Main Bronchus, Via Natural or Artificial Opening Endoscopic (ICD-10-PCS; 2017-10-24)
DX: S12.300A Unspecified displaced fracture of fourth cervical vertebra, initial encounter for closed fracture (principal); J95.851 Ventilator associated pneumonia; J15.212 Pneumonia due to Methicillin resistant Staphylococcus aureus; E87.70 Fluid overload, unspecified; K56.7 Ileus, unspecified; J96.01 Acute respiratory failure with hypoxia; J96.02 Acute respiratory failure with hypercapnia; S06.0X1A Concussion with loss of consciousness of 30 minutes or less, initial encounter; D64.9 Anemia, unspecified; F10.120 Alcohol abuse with intoxication, uncomplicated; S13.4XXA Sprain of ligaments of cervical spine, initial encounter; S13.150A Subluxation of C4/C5 cervical vertebrae, initial encounter; W16.022A Fall into swimming pool striking bottom causing other injury, initial encounter; S01.01XA Laceration without foreign body of scalp, initial encounter; R40.2412 Glasgow coma scale score 13-15, at arrival to emergency department; Y90.6 Blood alcohol level of 120-199 mg/100 ml; R41.3 Other amnesia; T88.4XXA Failed or difficult intubation, initial encounter; Y84.8 Other medical procedures as the cause of abnormal reaction of the patient, or of later complication, without mention of misadventure at the time of the procedure; Y95 Nosocomial condition; R00.0 Tachycardia, unspecified; Y93.12 Activity, springboard and platform diving; Y92.34 Swimming pool (public) as the place of occurrence of the external cause
CPT/HCPCS: 12002; 36600; 70450; 70498; 71045; 72020; 72040; 72125; 72128; 72141; 74018; 74177; 76000; 76937; 80048; 80053; 80307; 81001; 82805; 83735; 84100; 85025; 85027; 85610; 85730; 86403; 86850; 86900; 86901; 87040; 87070; 87077; 87147; 87184; 87185; 87186; 87205; 87493; 87641; 90471; 90714; 93005; 93970; 94002; 94003; 94150; 94664; 96361; 96365; 96375; C1713; E0840; J0131; J0690; J0696; J0780; J1100; J1170; J1630; J1650; J1940; J2020; J2250; J2270; J2370; J2543; J2550; J2765; J3010; J3370; J3480; J7030; J7050; J7070; J7120; J7613; L0150; L0172; L0810; Q9967